=== PATIENT | female | born 1985 | race Caucasian/White ===

== ENCOUNTER 2021-06-14 07:47 | Outpatient (CLI) | payer MEDICARE, MEDICAID, SELFPAY ==
--- NOTE | 2021-06-14 08:29 | XR_ITS ---
WS: [id number] Lateral views of cervical spine in the flexion, extension and neutral positions. 06/14/2021 Clinical Data: CERVICALGIA Comparison: None. Findings: No compression fractures are seen. There is no prevertebral soft tissue swelling. The disc heights ar e normal. On flexion and extension there is no limitation of motion or subluxation. XR/XR cervical spine fl/ex [id number] Impression: Negative lateral views of the cervical spine with no limitation of motion or barnes bluxation on flexion or extension.
== END 2021-06-14 07:48 | disposition home or self-care (01) ==
LOC: RAD 08:05
PROVIDERS: PCP Nurse Practitioner Family; Visit Provider Nurse Practitioner Family
DX: M54.2 Cervicalgia (principal)
CPT/HCPCS: 72040

== ENCOUNTER 2021-08-20 07:13 | Outpatient (CLI) | payer MEDICARE, MEDICAID, SELFPAY ==
--- NOTE | 2021-08-20 07:28 | MR_ITS ---
WS: [id number] MRI LUMBAR SPINE NONCONTRAST TECHNIQUE: Sagittal T1, T2 and STIR imaging. Axial T1 and T2 imaging. CLINICAL INFORMATION: SCIATICA/DORSALGIA COMPARISON: None. FINDINGS: Mild lumbar curve. No acute compression. Prior postoperative changes pedicle screw fixation L3-S1 wit h interconnecting rods. Small shallow central protrusion T12-L1. Spinal canal and foramen are patent. L1-L2: Normal. L2-L3: Mild disc bulging with mild to moderate central canal stenosis. Slight impingement traversing L3 nerve roots bilaterally. Mild facet arthropathy. Foramen are patent. Moderate facet arthropathy. L3-L4: Pedicle screw fixation with laminectomy defects. Spinal canal and foramen are patent. L4-L5: Pedicle screw fixation with laminectomy defects. Spinal canal and foramen are patent. L5-S1: Pedicle screw fixation with laminectomy defects. Spinal canal and foramen are patent. Fixation screws across the sacroiliac joints bilaterally. MR/MR lumbar spine wo con* [id number] IMPRESSION: 1. Mild lumbar curve. No acute compression. No high-grade central canal stenos is. 2. Shallow central protrusion T12-L1 with mild central canal stenosis. 3. Mild to moderate central canal stenosis L2-L3 due to disc bulging with face t arthropathy and ligamentum flavum hypertrophy. Impingement on the traversing L3 nerve roots bilaterally. 4. Pedicle screw fixation L3-L5 with laminectomy defects and interbody fusion grafts. Bilateral sacroiliac fixation screws.
--- NOTE | 2021-08-20 07:30 | XR_ITS ---
WS: [email or web address] XR lumbar spine f/e only [id number] REASON FOR EXAM: POSTLAMINECTOMY SYNDROME FINDINGS: No previous examination for comparison. Posterior pedicle screw and henry fixation of the lumbar spine from L3 to S1. Lateral flexion and extension images demonstrate no abnormal lumbar spine movement. Interbody fusion devices at L3-L4, L4-L5, and L5-S1. Other devices overlying the S1 region without further characterization due to the single plane imagin g. XR/XR lumbar spine f/e only [id number] IMPRESSION: Postoperative lumbar spine as above.
== END 2021-08-20 07:14 | disposition home or self-care (01) ==
LOC: RAD 07:16
PROVIDERS: PCP Nurse Practitioner Family; Visit Provider Nurse Practitioner Family
DX: R32 Unspecified urinary incontinence (principal); M54.30 Sciatica, unspecified side; M54.9 Dorsalgia, unspecified; R20.0 Anesthesia of skin
CPT/HCPCS: 72120; 72148

== ENCOUNTER 2021-12-14 13:22 | Emergency (ER) | payer MEDICARE, MEDICAID, SELFPAY ==
[2021-12-14 13:31] VITALS: BP 139/89; PULSE 85; RESP 16; TEMP 36.3; O2SAT 99
--- NOTE | 2021-12-14 14:06 | ED_ITS ---
HPI - General Adult General: Chief complaint: General Medical Stated complaint: random body jerking Time Seen by Provider: 12/14/21 14:06 History of Present Illness: Ms. Burgess is a 36-year-old lady with complex past medical history presenting to the emergency department for abnormal muscle movements. She reports onset of symptoms subacutely without known specific provoking factor approximately 3 months ago. She is on multiple medications with potential neurologic effects and she was switched from Abilify and another medication to lamotrigine about 1 month ago however has not had significant improvement. She notes daily multiple times per day having abnormal muscle movements in the upper extremities lower extremities and/or face. She denies known specific provoking factor. She has not been awoken due to these and has not been told that she has them during her sleep. Overall course of symptoms has persisted. She contacted her physician and was referred to the emergency department due to concern over serotonergic toxicity. No other specific changes in health, exacerbating, or alleviating factors identified. Onset (ago): month(s) Severity: moderate Relieving factors: none Exacerbating factors: none Associated symptoms: Reports no associated symptoms Review of Systems General: Reports: 10 or more systems reviewed and unremarkable except in HPI and below PFSH ED PFSH: Medical History (Updated 12/28/21 @ 06:31 by Aldo Madison MD) Depression Surgical History (Updated 12/28/21 @ 06:31 by Aldo Madison MD) No significant past surgical history Physical Exam Const: COMMON NORMALS: patient oriented x3 and alert GENERAL APPEARANCE: cooperative and well developed HENMT: COMMON NORMALS: normocephalic and atraumatic HEAD & SCALP: normocephalic and atraumatic Eye: COMMON NORMALS: conjunctivae normal CONJUNCTIVA: Yes conjunctivae normal SCLERA: sclerae normal Neck/C-Spine: COMMON NORMALS: supple GENERAL: Yes trachea midline Resp: COMMON NORMALS: clear to auscultation bilaterally EFFORT & INSPECTION: Yes able to speak in complete sentences AUSCULTATION: clear to auscultation bilaterally Cardio: COMMON NORMALS: regular rate and regular rhythm RATE: regular rate RHYTHM: regular rhythm GI: COMMON NORMALS: Soft to palpation PALPATION: Yes Soft to palpation and No Tenderness to palpation present (GI) PERCUSSION: normal to percussion Extremity: GENERAL: Yes normal exam except as noted and No edema Neuro: COMMON NORMALS: patient oriented x3, CN's II-XII intact bilaterally, moves all extremities, no focal motor deficits, no sensory deficits noted and gait normal SENSORIUM/ORIENTATION: Yes alert and No Orientation impaired Psych: COMMON NORMALS: mental status grossly normal and Normal thought process present THOUGHT PROCESS: Normal thought process present Course ED course: - Patient was seen and evaluated by me at bedside - Patient placed on cardiac monitors, IV access obtained - Initial evaluation notable for exam as above. There is no acute neurologic abnormality observed. No abnormal muscle tone or movements. No rigidity. Medical presentation is not consistent with an NMS or serotonin withdrawal/or toxicity. - Labs personally interpreted by me - Fluids and headache treatment given - Labs notable for no significant hematologic or metabolic abnormality to explain symptoms. Urinalysis does have 10-15 whites though patient does not have urinary tract symptoms and therefore treatment will be deferred at this time. - Imaging notable for no acute abnormality identified on CT scan of the brain - Upon serial reexamination after treatment the patient was improved - Based on patient history, evaluation, and testing as interpreted the most likely cause of the patient's condition is abnormal muscle movements of uncertain etiology that does not require inpatient management at this time. - The results of ED evaluation were discussed with the patient including prescriptions and/or symptomatic cares (if applicable) including appropriate and responsible use, followup plan, and return precautions. The patient verbalized understanding and felt safe for discharge. - Patient discharged in satisfactory condition. Note: Click bubbles or prepopulated christian in note writing are used for assistance with data collection and billing and are inherently more limited than narrative and other text portions of this note. Please use narrative for additional clinical history and defer to narrative/free test for any case of contradictory information. If information appears in only free text or click bubble it should be considered present or absent as reported. Please contact note adjusto writer operator for clarifications of clinical information or contradictory information. MDM is a brief summary, contradictory or erroneous seeming information should be clarified and full note should be reviewed. Vital Signs: Vital signs: Vital Signs Temperature 97.4 F L 12/14/21 13:31 Pulse Rate 82 12/14/21 17:14 Respiratory Rate 14 12/14/21 17:14 Blood Pressure 129/90 12/14/21 17:14 Pulse Oximetry 98 12/14/21 17:14 Oxygen Delivery Ri thod 12/14/21 17:14 MDM - General Adult Medical Decision Making 36-year-old lady presenting with abnormal muscle movements. No emergent condition identified on exam and neurologic exam is nonfocal. Satisfactory for outpatient management. Medical Records I reviewed the patient's medical records. Lab Data I reviewed the patient's lab results. : 12/14/21 15:14 12/14/21 15:[address] 12/14/21 14:36 IMPRESSION: 1. Unremarkable noncontrast CT scan of the brain. Laboratory Results WBC 6.1 10^3/uL (4.0-10.0) 12/14/21 15:14 RBC 4.60 10^6/uL (4.1-5.3) 12/14/21 15:14 Hgb 13.1 g/dL (11.5-15.3) 12/14/21 15:14 Hct 40.0 % (37.0-47.0) 12/14/21 15:14 MCV 87.0 fl (81-99) 12/14/21 15:14 MCH 28.5 pg (28.0-34.0) 12/14/21 15:14 MCHC 32.8 g/dL (30.0-36.0) 12/14/21 15:14 RDW 12.6 % (12.1-15.1) 12/14/21 15:14 Plt Count 329 10^3/cmm (130-400) 12/14/21 15:14 MPV 9.7 fL (7.4-10.4) 12/14/21 15:14 Neut % (Auto) 45.9 % 12/14/21 15:14 Lymph % (Auto) 44.5 % 12/14/21 15:14 [place] % (Auto) 7.4 % 12/14/21 15:14 Eos % (Auto) 1.5 % 12/14/21 15:14 Baso % (Auto) 0.5 % 12/14/21 15:14 Neut # (Auto) 2.79 10^3/uL (1.8-7.7) 12/14/21 15:14 Lymph # (Auto) 2.7 10^3/uL (0.8-4.8) 12/14/21 15:14 [place] # (Auto) 0.5 10^3/uL (0.2-0.9) 12/14/21 15:14 Eos # (Auto) 0.1 10^3/uL (0.0-0.8) 12/14/21 15:14 Baso # (Auto) 0.0 10^3/uL (0.0-0.1) 12/14/21 15:14 Nucleated RBC % (auto) 0 % 12/14/21 15:14 Nucleated RBCs # 0.0 /100WBC 12/14/21 15:14 Sodium 139 mmol/L (136-145) 12/14/21 15:14 Potassium 4.0 mmol/L (3.5-5.1) 12/14/21 15:14 Chloride 102 mmol/L (98-107) 12/14/21 15:14 Carbon Dioxide 27 mmol/L (22-29) 12/14/21 15:14 Anion Gap 14.0 (5-19) 12/14/21 15:14 BUN 20 mg/dL (6-20) 12/14/21 15:14 Creatinine 0.6 mg/dL (0.5-0.9) 12/14/21 15:14 GFR Calculation 112.5 mL/min (90-130) 12/14/21 15:14 Glucose 116 mg/dL (65-115) H 12/14/21 15:14 Calculated Osmolality 292 mOsm/kg (285-295) 12/14/21 15:14 Calcium 9.1 mg/dL (8.5-10.5) 12/14/21 15:14 Total Bilirubin 0.2 mg/dL (0.15-1.2) 12/14/21 15:14 AST 25 U/L (0-32) 12/14/21 15:14 ALT 44 U/L (0-33) H 12/14/21 15:14 Alkaline Phosphatase 67 U/L (35-105) 12/14/21 15:14 Creatine Kinase 141 U/L (26-192) 12/14/21 15:14 Total Protein 7.4 g/dL (6.6-8.7) 12/14/21 15:14 Albumin 4.7 g/dL (3.5-5.2) 12/14/21 15:14 Globulin 2.7 g/dL (1.3-4.6) 12/14/21 15:14 TSH 0.72 uIU/mL (0.27-4.20) 12/14/21 15:14 HCG, Qual Negative (Negative) 12/14/21 15:20 Urine Color Yellow (Yellow) 12/14/21 15:20 Urine Appearance Hazy (CLEAR) A 12/14/21 15:20 Urine pH 5 (5-7) 12/14/21 15:20 Ur Specific [place] 1.025 (1.005-1.030) 12/14/21 15:20 Urine Protein Neg (Negative) 12/14/21 15:20 Urine Glucose (UA) Norm (Normal) 12/14/21 15:20 Urine Ketones Negative (Negative) 12/14/21 15:20 Urine Blood Trace (Negative) H 12/14/21 15:20 Urine Nitrate Negative (Negative) 12/14/21 15:20 Urine Bilirubin Neg (Negative) 12/14/21 15:20 Urine Urobilinogen Norm mg/dL (Negative) 12/14/21 15:20 Ur Leukocyte Esterase Trace (Negative) H 12/14/21 15:20 Urine RBC 0-4 /hpf (0-2) H 12/14/21 15:20 Urine WBC 10-15 /hpf (0-5) H 12/14/21 15:20 Ur Squamous Epith Cells 0-4 /hpf (0-5) H 12/14/21 15:20 Amorphous Sediment Not Reportable 12/14/21 15:20 Urine Bacteria 3+ /hpf (NONE) H 12/14/21 15:20 Discharge Plan Discharge Patient Disposition: Home Clinical Impression: Muscle twitching Condition: Stable Prescriptions: No Action methocarbamol 500 mg tablet 500 mg PO Q8H PRN (Reason: Pain) lamotrigine 25 mg tablet 50 mg PO BEDTIME oxycodone-acetaminophen 10-325 mg tablet 1 tab PO Q8H PRN (Reason: Pain) propranolol 20 mg tablet 20 mg PO BID fluoxetine 20 mg capsule 60 mg PO DAILY pregabalin 300 mg capsule 300 mg PO BID atomoxetine 80 mg capsule 80 mg PO DAILY Linzess 145 mcg capsule 145 mcg PO DAILY multivitamin Tablet 1 tab PO DAILY Zyrtec 10 mg Tablet 10 mg PO DAILY naproxen 250 mg Tablet See Rx Instructions .ROUTE .COMPLEX Rx Instructions: 500 mg orally in the morning / 250 mg orally in the evening Pepcid 20 mg Tablet 20 mg PO BEDTIME Discharge Orders: Discharge ED (Routine); Ordered 12/14/21 Ordered By: Aldo Madison Referrals: Cintia Snow NP [Primary Care Provider] - Discharge Diet: Usual diet Discharge Activity: Increase activity as tolerated Activity Restrictions/Additional Instructions: Thank you for visiting the emergency department. You were seen and evaluated for abnormal muscle movements. The exact cause of your symptoms is unclear though it does not appear to need hospitalization at this time. I will message my case manager specialist for referral to neurology. Please also follow-up with your primary care provider and other physicians. Return to the emergency department for any new neurologic symptoms or anything else that you are concerned about and feel needs emergency department evaluation. Coding Level of Care Code ED Dry Wall Installations Mechanic for Jorge Loja
--- NOTE | 2021-12-14 14:36 | CT_ITS ---
WS: [email or web address] Exam: CT head wo con* [id number] Date/Time of Exam: 12/14/2021 2:44 PM Reason For Exam: abnormal muscle movements DLP: 1105.[address] scans at [facility] use at least one of these dose optimization techniques: automated e xposure control; mA and/or kV adjustment per patient size (includes targeted exams where dose is matc hed to clinical indication); or iterative reconstruction. No sign of acute intracranial bleed or space-occupying mass. The ventricles and basal cisterns are no rmal in size and configuration. No extra-axial fluid collections are seen. The skull is intact. The m astoids and facial sinuses are clear. Unremarkable orbits and optic globes. CT/CT head wo con* [id number] IMPRESSION: 1. Unremarkable noncontrast CT scan of the brain.
[2021-12-14 15:23] LABS: Basophils % 0.5 %; Eosinophils # 0.1 10^3/uL (0.0-0.8); Eosinophils % 1.5 %; Hemoglobin 13.1 g/dL (11.5-15.3); Lymphocytes # 2.7 10^3/uL (0.8-4.8); Lymphocytes % 44.5 %; Mean Corpuscular HGB Conc 32.8 g/dL (30.0-36.0); Mean Corpuscular Hemoglobin 28.5 pg (28.0-34.0); Mean Platelet Volume 9.7 fL (7.4-10.4); Monocytes # 0.5 10^3/uL (0.2-0.9); Monocytes % 7.4 %; Neutrophils # 2.79 10^3/uL (1.8-7.7); Neutrophils % 45.9 %; Nucleated Red Blood Cells % 0 %; Platelet Count 329 10^3/cmm (130-400); Red Cell Distribution Width 12.6 % (12.1-15.1); White Blood Count 6.1 10^3/uL (4.0-10.0)
[2021-12-14] MEDS: lactated ringers 1,000 ML 999 ML IV (15:25)
[2021-12-14 15:30] LABS: HCG Qualitative Urine. Negative (Negative)
[2021-12-14 16:01] LABS: Alanine Aminotransferase 44 U/L (0-33); Albumin Level 4.7 g/dL (3.5-5.2); Alkaline Phosphatase 67 U/L (35-105); Aspartate Amino Transferase 25 U/L (0-32); Blood Urea Nitrogen 20 mg/dL (6-20); Calcium 9.1 mg/dL (8.5-10.5); Carbon Dioxide 27 mmol/L (22-29); Chloride 102 mmol/L (98-107); Creatine Phosphokinase 141 U/L (26-192); Globulin 2.7 g/dL (1.3-4.6); Glomerular Filtration Rate 112.5 mL/min (90-130); Glucose 116 mg/dL (65-115); Osmolality Calculated 292 mOsm/kg (285-295); Sodium 139 mmol/L (136-145); Thyroid Stimulating Hormone 0.72 uIU/mL (0.27-4.20); Total Bilirubin 0.2 mg/dL (0.15-1.2); Total Protein 7.4 g/dL (6.6-8.7)
[2021-12-14 16:10] LABS: Urine Appearance Hazy (CLEAR); Urine Color Yellow (Yellow)
[2021-12-14 16:11] LABS: Add Urine Microscopic? YES; Bilirubin Urine Neg (Negative); Blood Urine Trace (Negative); Glucose Urine UA Norm (Normal); Ketones Urine Negative (Negative); Leukocyte Esterase Urine Trace (Negative); Nitrate Urine Negative (Negative); Protein Urine Neg (Negative); Specific Gravity, Urine 1.025 (1.005-1.030); Urobilinogen Urine Norm (Negative); pH Urine 5 (5-7)
[2021-12-14] MEDS: metoclopramide 5 mg/mL SDV 2 mL 10 MG IVP (16:14)
[2021-12-14] MEDS: diphenhydrAMINE 50 mg/mL SDV 1mL 25 MG IVP (16:14)
[2021-12-14] MEDS: ketorolac 30 mg/mL INJ 15 MG IVP (16:14)
[2021-12-14 16:37] LABS: Add Urine Culture? Yes; Bacteria Urine 3+ /hpf; RBC Urine 0-4 /hpf (0-2); Squamous Epithelial Cell Urine 0-4 /hpf (0-5)
[2021-12-14 17:14] VITALS: BP 129/90; PULSE 82; RESP 14; O2SAT 98
--- NOTE | 2021-12-18 09:08 | DCPLANNER ---
Addendum entered by Starr Hurley 01/10/22 11:16: Patient had a follow up appointment scheduled with neurology - patient did attend appointment. Addendum entered by Starr Hurley 12/25/21 08:06: Patient has a follow up appointment scheduled for Friday, January 09, 2022 at 10:[address] Huffman at neurology. Clinic will call patient with appointment information. Original Note: testing manager had message to schedule a follow up appointment for patient with neurology. testing manager sent patients information to the front office staff at neurology. Patients information will be printed and reviewed. Clinic will call patient with appointment information.
== END 2021-12-14 17:22 | disposition home or self-care (01) ==
PROVIDERS: Emergency Provider Emergency Medicine; PCP Nurse Practitioner Family
DX: R25.3 Fasciculation (principal)
CPT/HCPCS: 36415; 70450; 80053; 81001; 81025; 82550; 84443; 85025; 87077; 87086; 87186; 96361; 96374; 96375; 99285; J1200; J1885; J2765

== ENCOUNTER → 2022-01-09 09:50 | Outpatient (BNVA) | payer MEDICARE, MEDICAID, SELFPAY | PROVIDERS: PCP Nurse Practitioner Family; Referring Provider Emergency Medicine; Visit Provider Specialist | DX: G25.3 Myoclonus (principal); G47.10 Hypersomnia, unspecified; G47.33 Obstructive sleep apnea (adult) (pediatric); Z79.891 Long term (current) use of opiate analgesic | CPT/HCPCS: 99204 ==

== ENCOUNTER 2022-01-17 20:00 | Outpatient (CLI) | payer MEDICARE, MEDICAID, SELFPAY | END 2022-01-17 20:01 | disposition home or self-care (01) | LOC: SLEEP 01-18 06:55 | PROVIDERS: PCP Nurse Practitioner Family; Visit Provider Anesthesiology Pain Medicine | DX: G47.10 Hypersomnia, unspecified (principal); R06.83 Snoring; R53.83 Other fatigue | CPT/HCPCS: 95810 ==

== ENCOUNTER → 2022-01-22 15:17 | Outpatient (BNVA) | payer MEDICARE, MEDICAID, SELFPAY | PROVIDERS: PCP Nurse Practitioner Family; Referring Provider Anesthesiology Pain Medicine; Visit Provider Physician Assistant | DX: M54.16 Radiculopathy, lumbar region (principal); Z98.1 Arthrodesis status | CPT/HCPCS: 72110; 99204 ==

== ENCOUNTER → 2022-02-20 10:05 | Outpatient (BNVA) | payer MEDICARE, MEDICAID, SELFPAY | PROVIDERS: PCP Nurse Practitioner Family; Visit Provider Nurse Practitioner Women's Health | DX: Z01.419 Encounter for gynecological examination (general) (routine) without abnormal findings (principal) | CPT/HCPCS: 87624 ==

== ENCOUNTER 2022-03-21 10:41 | Outpatient (CLI) | payer MEDICARE, MEDICAID, SELFPAY ==
--- NOTE | 2022-03-21 11:00 | IR_ITS ---
WS: [email or web address] MYELOGRAM LUMBAR SPINE Fluoroscopic guided lumbar myelogram CLINICAL INFORMATION: pain COMPARISON: None. TECHNIQUE: The procedure, including risks, benefits, and complications, were discussed with the patie nt who agreed to proceed. A timeout was performed to confirm correct patient, procedure, and site. Using sterile technique, the patient was prepped and draped in the usual sterile fashion. After admin istration of local anesthesia using 1% preservative-free lidocaine and using fluoroscopic guidance, a 22-gauge spinal needle was advanced into the subarachnoid space at the L3-L4 level. Subsequently 13 cc of Omnipaque 240 was administered into the thecal sac. The needle was removed and hemostasis was a chieved. Spot fluoroscopic images were obtained. FLUOROSCOPIC TIME: 1min [id number] # of spot films: 8 Spot fluoroscopic images demonstrate pedicle screw fixation L3-S1. Hardware appears in good position. Slight retrolisthesis L2 on L3. Interbody fusion grafts L3-L4 L4-L5 and L5-S1. IR/IR myelogram sp lumbar [id number] IMPRESSION: 1. Uncomplicated lumbar myelogram. 2. Please see CT myelogram report for additional detail.
--- NOTE | 2022-03-21 11:00 | CT_ITS ---
WS: [email or web address] CT LUMBAR SPINE TECHNIQUE: Contrast-enhanced CT of the lumbar spine with coronal and sagittal reformatted images. CLINICAL INFORMATION: pain COMPARISON: MRI August 20, 2021 DLP: 1400.[address] scans at [facility] use at least one of these dose optimization techniques: automated e xposure control; mA and/or kV adjustment per patient size (includes targeted exams where dose is matc hed to clinical indication); or iterative reconstruction. FINDINGS: Mild lumbar curve. No acute compression. Pedicle screw fixation L3-S1 with interbody fusion grafts L3 -L4 L4-L5 and L5-S1. Subsidence along the adjacent endplates. No significant bony bridging beyond the confines of the grafts. Interconnecting rods appear intact. No evidence of screw loosening. Laminect shanice defects L3-L5. Prior postoperative changes sacroiliac fusion. L1-L2: Moderate facet arthropathy. Spinal canal and foramen are patent. L2-L3: Mild disc bulging with shallow central protrusion. Mild central canal stenosis. Impingement on the RIGHT greater than LEFT subarticular recess. Moderate facet arthropathy ligamentum flavum hypert rophy. Mild RIGHT and no significant LEFT foraminal narrowing. L3-L4: Prior postoperative changes. Spinal canal and foramen are patent. Laminectomy defects. L4-L5: Prior postoperative changes. Laminectomy defects. Spinal canal and foramen are patent. L5-S1: Prior postoperative changes. Endplate osteophytic ridging. Slight effacement of ventral thecal sac. Slight contact of the RIGHT S1 nerve root. Spinal canal and foramen are patent. Laminectomy def ects. Visualized pelvic bony structures: Normal. Paravertebral soft tissues: Normal. CT/CT lumbar spine w con [id number] IMPRESSION: 1. Prior postoperative changes pedicle screw fixation L3-S1 with pedicle screw fixation and interconnecting rods. No evidence of screw loosening. Interconnec ting rods appear intact. Bilateral sacroiliac fixation screws. 2. Interbody fusion grafts L3-L4 L4-L5 and L5-S1 with subsidence along the end plates. No evidence of bony bridging beyond the confines of the grafts. 3. Shallow central disc protrusion at L2-L3 with mild to moderate central misbah l stenosis and impingement on the traversing RIGHT L3 nerve root in the subarti cular recess. Moderate facet arthropathy ligamentum flavum hypertrophy. Mild RI GHT L2-L3 foraminal narrowing. 4. Disc osteophytic ridging L5-S1 slightly contacts the traversing RIGHT S1 ne rve root. 5. Spinal canal and foramen are otherwise patent.
[2022-03-21] MEDS: iohexol 240 mg/mL 50 mL Btl INTRATHECA (12:09)
== END 2022-03-21 10:42 | disposition home or self-care (01) ==
LOC: RAD 10:42
PROVIDERS: PCP Nurse Practitioner Family; Visit Provider Physician Assistant
DX: M48.061 Spinal stenosis, lumbar region without neurogenic claudication (principal); M51.36 Other intervertebral disc degeneration, lumbar region
CPT/HCPCS: 62304; 72132; Q9966

== ENCOUNTER 2022-03-25 08:34 | Outpatient (CLI) | payer MEDICARE, MEDICAID, SELFPAY ==
--- NOTE | 2022-03-25 | FL_ITS ---
WS: [email or web address] Esophagram, air-contrast, 03/25/2022 Clinical Data: Dysphagia, choking Comparison: None. Fluoroscopy time: 1.3 minutes # of spot films: 10 Findings: The patient swallowed the barium and air mixture. The hypopharynx was entirely normal. There is no po oling, penetration or aspiration. There is no cricopharyngeal achalasia or Zenker's diverticulum. The esophagus demonstrated normal contractions. There was no polyp, mass, obstruction, erosion, ulcer or hiatal hernia. No reflux was seen. FL/FL barium swallow 2cont [id number] Impression: Negative barium swallow and esophagram.
--- NOTE | 2022-03-25 08:40 | FL_ITS ---
WS: [email or web address] Esophagram, air-contrast, 03/25/2022 Clinical Data: Dysphagia, choking Comparison: None. Fluoroscopy time: 1.3 minutes # of spot films: 10 Findings: The patient swallowed the barium and air mixture. The hypopharynx was entirely normal. There is no po oling, penetration or aspiration. There is no cricopharyngeal achalasia or Zenker's diverticulum. The esophagus demonstrated normal contractions. There was no polyp, mass, obstruction, erosion, ulcer or hiatal hernia. No reflux was seen.
== END 2022-03-25 08:35 | disposition home or self-care (01) ==
LOC: RAD 08:34
PROVIDERS: PCP Nurse Practitioner Family; Visit Provider Nurse Practitioner Family
DX: R47.02 Dysphasia (principal); T17.308A Unspecified foreign body in larynx causing other injury, initial encounter
CPT/HCPCS: 74221

== ENCOUNTER → 2022-03-28 14:41 | Outpatient (BNVA) | payer MEDICARE, MEDICAID, SELFPAY | PROVIDERS: PCP Nurse Practitioner Family; Visit Provider Orthopaedic Surgery | DX: M48.062 Spinal stenosis, lumbar region with neurogenic claudication (principal); Z98.1 Arthrodesis status | CPT/HCPCS: 99214 ==

== ENCOUNTER → 2022-04-30 10:54 | Outpatient (BNVA) | payer MEDICARE, MEDICAID, SELFPAY | PROVIDERS: PCP Nurse Practitioner Family; Visit Provider Specialist | DX: G43.009 Migraine without aura, not intractable, without status migrainosus (principal); G25.3 Myoclonus; G47.10 Hypersomnia, unspecified; M54.2 Cervicalgia; Z79.891 Long term (current) use of opiate analgesic; Z79.899 Other long term (current) drug therapy | CPT/HCPCS: 99214 ==

== ENCOUNTER → 2022-05-21 12:20 | Outpatient (BNVA) | payer MEDICARE, MEDICAID, SELFPAY | PROVIDERS: PCP Nurse Practitioner Family; Visit Provider Specialist | DX: M48.062 Spinal stenosis, lumbar region with neurogenic claudication (principal); G43.009 Migraine without aura, not intractable, without status migrainosus; M79.7 Fibromyalgia; Z01.818 Encounter for other preprocedural examination; Z86.73 Personal history of transient ischemic attack (TIA), and cerebral infarction without residual deficits; Z87.891 Personal history of nicotine dependence; G45.9 Transient cerebral ischemic attack, unspecified | CPT/HCPCS: 36415; 70450; 70496; 70498; 80053; 84443; 85025; 99215; Q9967 ==

== ENCOUNTER 2022-05-21 14:43 | Outpatient (CLI) | payer MEDICARE, MEDICAID, SELFPAY ==
[2022-05-21] MEDS: iohexol 350 mg/mL 500 mL Btl (per mL) IV ×2 (14:47→15:55)
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
--- NOTE | 2022-05-21 17:30 | CTR_ITS ---
PROCEDURE INFORMATION: Exam: CT Head Without Contrast Exam date and time: 05/21/2022 3:46 PM Age: 36 years old Clinical indication: Other: Transient cerebral ischemic attack, unspecified; Additional info: G45.9 - transient cerebral ischemic attack, unspecified TECHNIQUE: Imaging protocol: Computed tomography of the head without contrast. Radiation optimization: All CT scans at this facility use at least one of these dose optimization techniques: automated exposure control; mA and/or kV adjustment per patient size (includes targeted exams where dose is matched to clinical indication); or iterative reconstruction. Other protocol: This patient has received 3 known CTs and 0 known cardiac nuclear medicine studies in the 12 months prior to the current study. COMPARISON: CT head wo con* [id number] 12/14/2021 2:54 PM RADIATION DOSE METRICS: Total DLP (mGy-cm): 543 FINDINGS: Brain: Normal. No hemorrhage. Unremarkable white matter. No mass effect. Cerebral ventricles: No ventriculomegaly. Paranasal sinuses: Visualized sinuses are unremarkable. No fluid levels. Mastoid air cells: Visualized mastoid air cells are well aerated. Bones/joints: Unremarkable. No acute fracture. Soft tissues: Unremarkable. CT/CT head wo con* [id number] IMPRESSION: No acute intracranial abnormality.
== END 2022-05-21 14:44 | disposition home or self-care (01) ==
PROVIDERS: PCP Nurse Practitioner Family; Visit Provider Specialist
DX: G45.9 Transient cerebral ischemic attack, unspecified (principal)
CPT/HCPCS: 36415; 70450; 70496; 70498; 80053; 84443; 85025; Q9967

== ENCOUNTER 2022-05-22 16:06 | Inpatient (IN) | payer MEDICARE, MEDICAID, SELFPAY ==
[2022-05-21 09:58] VITALS: BMI 33.5
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
[2022-05-22] VITALS (18 sets, daily range): BP systolic 99–142; BP diastolic 65–98; PULSE 83–101; RESP 7–21; TEMP 36.4–36.6; O2SAT 90–100
[2022-05-22] MEDS: sodium chloride 0.9% 1,000 ML 30 ML IV (11:20)
[2022-05-22 11:26] LABS: OR HCG Qualitative Urine Negative (Negative)
--- NOTE | 2022-05-22 11:48 | PM.HP ---
Providers/Chief Complaint Primary Care Provider: Cintia Snow NP Chief Complaint: [id number],M48.0 History of Present Illness Karime Burgess is a 36 year old female ?She complains of low back pain that travels from her low back into the right posterior hip. She also complains of bilateral leg weakness and her legs giving out. She did have a spinal cord stimulator trial that helped with her back pain. She has a history of previous lumbar fusion in 2018 done in [place]. Review of Systems Const: Reports: fatigue Eyes: Reports: blurry vision Card: Reports: other (calf cramp) GI: Reports: heartburn and constipation Musc: Reports: neck pain, back pain, extremity pain and muscle weakness Skin/Breast: Reports: rash Neuro: Reports: headache(s), numbness in extremities, weakness in extremities, sensory changes, difficulty walking and involuntary movements Psych: Reports: depression, irritability and difficulty concentrating Medications/Allergies Home Medications Medication Instructions Recorded Confirmed Last Taken Type cetirizine 10 mg tablet (Zyrtec) 10 mg PO DAILY 12/14/21 05/21/22 05/22/22 08:00 History famotidine 20 mg tablet (Pepcid) 20 mg PO BEDTIME 12/14/21 05/21/22 05/22/22 08:00 History linaclotide 145 mcg capsule 145 mcg PO DAILY 12/14/21 05/21/22 05/21/22 08:00 History (Linzess) multivitamin 1 tab PO DAILY 12/14/21 05/21/22 05/21/22 08:00 History naproxen 250 mg tablet See Rx Instructions .Route .COMPLEX 12/14/21 05/21/22 05/16/22 History oxycodone-acetaminophen 10 mg-325 1 tab PO Q8H PRN Pain 12/14/21 05/21/22 05/22/22 08:00 History mg tablet pregabalin 300 mg capsule 300 mg PO BID 12/14/21 05/21/22 05/22/22 08:00 History propranolol 20 mg tablet 20 mg PO BID 12/14/21 05/21/22 05/22/22 08:00 History tizanidine 4 mg capsule 4 mg PO Q6H PRN Headache 02/20/22 05/21/22 05/21/22 History sumatriptan succinate 100 mg See Rx Instructions PO .COMPLEX 04/30/22 05/22/22 Unknown Rx tablet (Imitrex) #90 tabs topiramate 100 mg tablet 100 mg PO DAILY 90 days #90 tabs 04/30/22 05/21/22 05/21/22 08:00 Rx Intraoperative Neuromonitoring #1 ea 05/21/22 Unknown Rx Allergies Allergy/AdvReac Type Severity Reaction Status Date / Time codeine Allergy Unknown Verified 05/21/22 12:33 hydrocodone Allergy Unknown Verified 05/21/22 12:33 Sulfa (Sulfonamide Allergy Unknown Verified 05/21/22 12:33 Antibiotics) PFSH Acute PFSH: Medical History Bipolar 1 disorder Depression DVT (deep venous thrombosis) (~2001) L leg-- OCP related Fibromyalgia syndrome Genital herpes Heartburn Irritable bowel syndrome (IBS) CONSTIPATION Migraine without aura No pertinent past medical history neghx: htn,dm,thyroid,pe PCP: Cintia Doshi [facility] H/O LEEP (~2019) History of back surgery (~2017) History of hip surgery (~2019) Right-- femur head repair Hx of appendectomy (~1989) Hx of cholecystectomy (~2019) Hx of shoulder surgery (~2020) Right shoulder S/P fusion of sacroiliac joint (~2018) Bilateral Family History Other Adopted Social History Smoking and tobacco status: former smoker Vitals/I&O/Wt Last Vital Signs Temp 97.8 F 05/22/22 10:53 Pulse 85 05/22/22 10:53 Resp 16 05/22/22 10:53 BP 129/95 05/22/22 10:53 Pulse Ox 98 05/22/22 10:53 O2 Del Method 05/22/22 10:56 Weight last 48 hrs Weight 247 lb Physical Exam Narrative: CONSTITUTIONAL: This is a normal appearing 36 year old female? in no acute distress. PSYCH: The patient is oriented to person, place and time. SKIN: The skin is of normal color and texture. NEURO: Patient is neurovascularly intact. MUSCULOSKELETAL / EXTREMITIES: 1.? lnjury(s): lumbar radiulopathy A&P Assessment and plan (1) Lumbar stenosis with neurogenic claudication: T10-L3 PSF Attestations Medical Necessity Statement*: failed conservative tx Coding Level of Care Code Acute Code for [facility] Fwd Diagnoses Lumbar stenosis with neurogenic claudication M48.062
--- NOTE | 2022-05-22 11:52 | P.ANESUD_ITS ---
Pre-Anesthetic Update Pre-Anesthetic Assessment: Date of Surgery/Procedure: 05/22/22 Preop Deepti gnosis: Lumbar stenosis w/Neurogenic Claudication, Failed Hardware L spine Proposed Procedure: Operation Date: 05/22/22 13:55 Proposed Procedures p Spinal Fusion Posterior Spinal Fusion: [id number] with Decomp at L3- T10 26219, L1,37561,[id number],46957,75187,90924,42296 M48.062(Not Applicable) - Oli Pineda, DO s Lumbar Spine Decompression(Not Applicable) - Oli Pineda, DO Any changes to Pre-Anesthetic Assessment?: No Last Intake: Intake Last Liquid Date 05/21/22 Last Liquid Time 23:45 Last Solid Date 05/21/22 Last Solid Time 23:40 Vitals: Temperature 97.8 F 05/22/22 10:53 Temperature Source Temporal Artery S can 05/22/22 10:53 Pulse Rate 85 05/22/22 10:53 Pulse Rhythm 05/22/22 10:56 Pulse Strength 3+ Normal 05/22/22 10:56 Respiratory Rate 16 05/22/22 10:53 Blood Pressure 129/95 05/22/22 10:53 Blood Pressure Yue n 106 05/22/22 10:53 Pulse Oximetry 98 05/22/22 10:53 Oxygen Delivery Me thod 05/22/22 10:56 Exam: Pre-Anes Outpt Exam: alert, oriented x 3, clear to auscultation bilaterally and regular rate & rhythm Cardiac Studies: No Data to Display
[2022-05-22] MEDS: ceFAZolin 2,000 MG in sodium chloride 0.9% (plus) 50 ML 100 MG IV ×2 (11:56→20:31)
[2022-05-22] MEDS: vancomycin 1,000 MG SDV 1000 MG XX (12:39)
[2022-05-22] MEDS: lidocaine-epi 2% 20 mL INJ INJECTION (12:39)
[2022-05-22] MEDS: heparin, porcine 1,000 unit/mL INJ 10 mL 10000 UNIT IRRIGATION (12:40)
--- NOTE | 2022-05-22 13:32 | PC.NURSE ---
[id number] Attempted to call patient's mother to give her an update. BHARGAV
--- NOTE | 2022-05-22 15:08 | XR_ITS ---
WS: [id number] XR lumbar spine 1V port [id number] REASON FOR EXAM: OR PICS FINDINGS: Extension of previous S1-L3 posterior decompression with pedicle screw and henry placement. Posterior decompression with posterior pedicle screws and interconnecting rods to the T10 level. Surgical appliances are in proper position and alignment. XR/XR lumbar spine 1V port [id number] IMPRESSION: Extension of posterior decompression with pedicle screw and henry placement to th e T10 level from the L3 level without abnormality.
--- NOTE | 2022-05-22 15:30 | PM.OP ---
Operative Report Date of procedure: May 22, 2022 Pre-op diagnosis: Preop Diagnosis Lumbar stenosis w/Neurogenic Claudication, Failed Hardware L spine Post-op diagnosis: same Procedure done: 1. T10 to L4 posterior spine fusion 2. T10 to L4 instrumentation 3. L1/2 laminectomy with partial facetectomy 4. L2/3 Laminectomy with partial facetectomy 5. use of computer navigation/stereotactic for spine 6. bone marrow aspirate right iliac crest 7. use of autograft from same incision 8. use of allograft Surgeon: Oli Pineda Conflict Resolution Professional: Garfield Escamilla Conflict Resolution Professional: The operating room surgical technician, Garfield Escamilla, PAC was needed for his expertise under the microscope. He was important and necessary throughout the procedure to complete in a safe and timely manner. He assisted with patient positioning prepping and draping tissue retraction suctioning of the operative field protection of the dural sac and tissue closure Estimated blood loss (mL): 350 Procedure: 1. T10 to L4 posterior spine fusion 2. T10 to L4 instrumentation 3. L1/2 laminectomy with partial facetectomy 4. L2/3 Laminectomy with partial facetectomy 5. use of computer navigation/stereotactic for spine 6. bone marrow aspirate right iliac crest 7. use of autograft from same incision 8. use of allograft Patient brought the operative suite after undergoing anesthesia placed in the prone position. All areas impingement well-padded. Patient was prepped draped normal sterile fashion. Neuro monitoring was used throughout the entire case. Skin incision made over the T10-L4 levels. The skin was made down to the thoracolumbar fascia. Retractors were placed subperiosteal dissection was made out from the transverse processes of T10 down to the transverse processes of L2. Patient had previous hardware in the screws and rods were dissected down to L5. Rods identified as well as the transverse processes of L3 and L4. Next attention was brought to obtaining bone marrow aspirate from right iliac crest. This was done by making stab incision the skin and placing the awl into the iliac crest bone marrow was aspirated 1 mm increments using the [employer] bone marrow aspirate system. She was brought to placing the fiducial for computer navigation. 2 pins were placed in the right iliac crest. These pains later be removed at the end of the case. The fiducial was then attached to these pins and the C-arm was brought in and spun around the patient. Once the images were completed there alone in the computer system in order to facilitate using the system for placement of. Navigated screws. Next tension was brought to placing the pedicle screws. These were done from L2 up to T10 bilaterally. Technique for placing the screws was to use the high-speed bur followed by the computer navigated gearshift followed by the pedicle feeler followed placement of the screw under computer navigated guidance. Once all the screws were placed from T10 down to L2. Attention was then brought to performing the laminectomies. Laminectomies were performed at the L2-3 level. This was done using a high-speed bur, curettes and Kerrison rongeurs. The lamina was removed and then the medial aspect of the facet joints were taken down with the high-speed bur and curved curette. In the capsule Purdy. The L3 nerve was traced around on the L3 pedicle there was some scar tissue from previous surgeries and then the L2 nerves were traced out the L2-3 foramen. Attention was brought to the L1-2 level. The has been gross used to take down the lamina and the medial aspect of facet joints. The curved. Kerrisons were used to take out the remaining lamina and medial aspect of facet joints. The ligamentum flavum was taken down from L1-L2. The L1 nerve was traced at the L1-2 foramen and the L2 nerve transfer on the L2 pedicles. Next attention was brought to placing the rods. José connectors were placed on the previous rods that were present. They are placed on the L4-5 level and the L3-4 level. These were locked and torqued in position bilaterally. Rods were then passed from the L4-5 clamp to the L3-4 clamp and to the pedicle screw of L2 up to T10. This was done bilaterally. Caps were placed and locked in position. Was brought to decorticating the bone. The was used to decorticate the bone from the TVs and lamina of T10 down to L1. In the TPs of L1-L2-L3 and L4 were decorticated. And then the bone marrow aspirate mixed with osteo amp in the autograft chips were all packed into the lateral gutters from L4 up to T10. Vancomycin powder was then placed deep drain was placed and wound was closed in a layered fashion using 0 Vicryl 2-0 Vicryl and Monocryl suture. Sterile dressings applied patient transferred to PACU in stable addition.
[2022-05-22] MEDS: fentaNYL 50 mcg/mL INJ 2mL IVP (15:56)
--- NOTE | 2022-05-22 16:00 | ANE.PACU2 ---
Inpatient post-anesthesia follow up: Airway intact: Yes Vital signs: Temperature 98.5 F Pulse Rate 107 Respiratory Rate 21 Blood Pressure 100/67 Pulse Oximetry 96 Oxygen Delivery Me thod Room Air Oxygen Flow Rate 8 Fraction of Inspir ed Oxygen Hydration adequate: Yes Nausea and vomiting: No Pain level: 1 Mental status: Baseline
--- NOTE | 2022-05-22 16:24 | PC.NURSE ---
Urine cloudy. Reported to receiving nurse. Hemovac emptied with 100cc output
[2022-05-22] MEDS: lactated ringers 1,000 ML 90 ML IV (17:45)
[2022-05-22] MEDS: docusate sodium 100 mg Capsule PO (17:46)
[2022-05-22] MEDS: oxyCODONE-APAP 10-325 mg Tablet PO (17:46)
[2022-05-22] MEDS: pregabalin 150 mg Capsule 300 MG PO (17:47)
[2022-05-22] MEDS: propranolol 20 mg Tablet PO (17:47)
[2022-05-22] MEDS: famotidine 20 mg Tablet PO (20:31)
[2022-05-22] MEDS: ketorolac 30 mg/mL INJ IVP (22:23)
[2022-05-23] VITALS: BP 100/67; PULSE 107; RESP 21; TEMP 36.9; O2SAT 96
[2022-05-23] MEDS: ceFAZolin 2,000 MG in sodium chloride 0.9% (plus) 50 ML 100 MG IV ×2 (03:33→12:45)
[2022-05-23 05:00] VITALS: BP 111/71; PULSE 98; RESP 21; TEMP 36.4; O2SAT 98
[2022-05-23 06:00] VITALS: BP 130/76; PULSE 94; RESP 17; TEMP 36.6; O2SAT 97
[2022-05-23] MEDS: lactated ringers 1,000 ML 90 ML IV (06:13)
--- NOTE | 2022-05-23 07:33 | PM.PN ---
Subjective Subjective: POD 1 She reporting back pain. Resting comfortably. Family is present. Denies any chest pain, shortness of breath or headaches. Vitals/I&O/Wt Last Vital Signs Temp 97.6 F 05/23/22 05:00 Pulse 98 05/23/22 05:00 Resp 21 H 05/23/22 05:00 BP 111/71 05/23/22 05:00 Pulse Ox 98 05/23/22 05:00 O2 Del Method 05/22/22 16:47 O2 Flow Rate 8 05/22/22 15:35 05/22/22 05/23/22 05/23/22 22:59 06:59 14:59 Intake Total 2690 / 2740 1320 / 4060 Output Total 900 / 900 1120 / 2020 Balance 1790 / 1840 200 / 2040 Weight last 48 hrs Weight 272 lb 8 oz Weight 247 lb Physical Exam Narrative: Patient presents alert and oriented x3 with a good general appearance normal mood and affect. Normal coordination normal stability. Mild tenderness around the incisional site with the incision appear to be clean and dry with Hemovac intact. No signs of erythema or drainage. No signs of infection. Patient denies any fevers or chills. 5/5 motor strength both lower extremities with negative straight leg raise bilaterally. Calves are supple no medial thigh tenderness. Pulses are 2+ at the dorsalis pedis and posterior tibial region. Good capillary refill throughout normal sensation light touch both lower extremities. Urinary Catheter Management: [place]: Cath Placed During This Visit: yes Reason for Continuing Indwelling Catheter: Required Immobilization for Trauma or Surgery or Anesthesia Urinary Catheter Date of Insertion: 05/22/22 Urinary Catheter Time of Insertion: 12:37 A&P Assessment and plan (1) S/P spinal fusion: Physical therapy to mobilize. We will discontinue Hemovac drain. Encourage incentive spirometer for pulmonary toilet. Discharge home later today if stable. Return the office in 1 week's time for a wound check. Call if there is problems. Attestations Medical Necessity Statement*: DC home later this AM if stable Coding Level of Care Code Acute Code for [facility] Fwd Diagnoses S/P spinal fusion Z98.1
[2022-05-23 09:34] VITALS: RESP 16
[2022-05-23] MEDS: propranolol 20 mg Tablet PO (09:34)
[2022-05-23] MEDS: oxyCODONE-APAP 10-325 mg Tablet PO ×2 (09:34→14:09)
[2022-05-23] MEDS: pregabalin 150 mg Capsule 300 MG PO (09:34)
[2022-05-23] MEDS: cetirizine 10 mg Tablet PO (09:34)
[2022-05-23] MEDS: docusate sodium 100 mg Capsule PO (09:35)
[2022-05-23] MEDS: topiramate 100 mg Tablet PO (09:35)
[2022-05-23] MEDS: multivitamin therapeutic Tablet 1 TAB PO (09:35)
[2022-05-23 12:00] VITALS: BP 138/87; PULSE 94; O2SAT 93
--- NOTE | 2022-05-23 12:10 | PC.CHAP ---
Pastoral Care Encounter/Spiritual Assessment Type of Contact [] Declined process development chemist visit [] Patient/Family/Request visit [] Outpatient visit [] Follow-up visit [] Physician referral [] Code/Alert [x] Routine visit [] Staff referral [] Actively dying [] Patient sleeping [] Family support [] [] Out of room [] Palliative care [] [x] Receiving care in room [] Pre-surgical visit [] Trauma [] Long length of stay [] ICU visit [] Other: Relational/Emotional Strength [x] Patient feels connected with others/family/visitors/staff [] Distress [] Loneliness/isolation [] Abandonment Spirituality of Patient [x] Person of [place] [] Attends Episcopal of their [place] [x] Believes in Prayer [] Reads Bible or Druze materials [] There are Spiritual issues to be addressed Change Control Manager Interventions [x] Prayer [x] Active listening [x] Non-anxious presence [x] Spiritual/emotional support [] Crisis/trauma care [x] Spiritual counseling [] Bereavement support [] Provided bereavement packet [] Provided Bible/devotional materials [] Provided toy/stuffed animal, coloring book to patient or family member [] Provided Communion [] Anointing/[place] [] Salvation [x] Completed spiritual assessment [] Other: Impact on Illness or Injury [] Angry [] Fearful [] Anxious [] Often cries [] Exhaustion [] Unable to work [] Unable to attend taoist [] Unable to walk/stand [] Unable to read [] Unable to drive [] Unable to eat/drink [] Unable to sleep [] Unable to be with family [] Patient intubated [] Other: Summary recovery from surgery leg swelling has a good attitude well go home Time spent with patient 10 mins
[2022-05-23 14:09] VITALS: RESP 18
== END 2022-05-23 14:45 | disposition home or self-care (01) | DRG 458 ==
LOC: MEDSURG 16:06
PROVIDERS: Anesthesiology; Admitting Provider Orthopaedic Surgery; PCP Nurse Practitioner Family; Visit Provider Orthopaedic Surgery
PROC: 0RG707J Fusion of 2 to 7 Thoracic Vertebral Joints with Autologous Tissue Substitute, Posterior Approach, Anterior Column, Open Approach (ICD-10-PCS; principal; 2022-05-22 13:25)
PROC: 0RG707J Fusion of 2 to 7 Thoracic Vertebral Joints with Autologous Tissue Substitute, Posterior Approach, Anterior Column, Open Approach (ICD-10-PCS; CPT 63005; 2022-05-22 13:25)
DX: M48.062 Spinal stenosis, lumbar region with neurogenic claudication (principal); Z88.5 Allergy status to narcotic agent; Z88.2 Allergy status to sulfonamides; F31.9 Bipolar disorder, unspecified; Z86.718 Personal history of other venous thrombosis and embolism; M79.7 Fibromyalgia; Z98.1 Arthrodesis status; Z87.891 Personal history of nicotine dependence
CPT/HCPCS: 51702; 72020; 76000; 81025; 84703; 97116; 97161; 97530; C1713; J0690; J1100; J1170; J1644; J1885; J2405; J2704; J3010; J3370; J3490; J7030; J7120; P9045

== ENCOUNTER 2022-05-26 16:49 | Emergency (ER) | payer MEDICARE, MEDICAID, SELFPAY ==
[2022-05-26 17:51] VITALS: BP 115/68; PULSE 106; TEMP 36.8; O2SAT 100; BMI 33.7
--- NOTE | 2022-05-26 18:38 | CTR_ITS ---
PROCEDURE INFORMATION: Exam: CT Lumbar Spine With Contrast Exam date and time: 05/26/2022 7:21 PM Age: 36 years old Clinical indication: Low back pain; Prior surgery; Surgery date: 3-7 days post-operative; Surgery type: Rods and screws t10-l5 with fusion; Additional info: Back pain post op TECHNIQUE: Imaging protocol: Computed tomography of the lumbar spine with contrast. Radiation optimization: All CT scans at this facility use at least one of these dose optimization techniques: automated exposure control; mA and/or kV adjustment per patient size (includes targeted exams where dose is matched to clinical indication); or iterative reconstruction. Contrast material: OMNI 350; Contrast volume: 100 ml; Contrast route: INTRAVENOUS (IV); Other protocol: This patient has received 4 known CTs and 0 known cardiac nuclear medicine studies in the 12 months prior to the current study. COMPARISON: CT lumbar spine w con [id number] 03/21/2022 11:53 AM RADIATION DOSE METRICS: Total DLP (mGy-cm): 1902 FINDINGS: Bones/joints: Spinal fusion changes have been expanded superiorly to the T10 level. Laminectomy changes have also been performed at the L1-L2 level with stable pre-existing laminectomies L3-L5. Pre-existing bilateral SI joint fusion changes are stable. The alignment of the spine is near anatomic. No acute displaced fracture is seen. No high-grade compromise of the spinal canal. Soft tissues: Minimal subcutaneous soft tissue gas with subcutaneous soft tissue edema is seen posteriorly in the surgical bed consistent with history. Probable seroma in the L1-L2 level laminectomy bed. No definite drainable abscess or fluid collection is seen. CT/CT lumbar spine w con [id number] IMPRESSION: Extension of the spinal fusion changes superiorly to the T10 level with intact hardware and anatomic alignment. Laminectomy changes have also been performed at L1-L2 with probable seroma in the laminectomy bed. No acute osseous injury. No drainable abscess or fluid collection.
--- NOTE | 2022-05-26 18:54 | ED_ITS ---
HPI - Back Pain/Injury General: Chief Complaint: Back Pain/Injury Stated Complaint: post back surgery pain Time Seen by Provider: 05/26/22 18:11 History of Present Illness: 36-year-old female who had a lumbar fusion surgery on 05/22. She presents with increased pain. She could not get her abdominal binder on at home, and she was concerned because she is supposed to wear it. She thinks she may be swollen, because its not fitting properly MD elicited complaint: back pain Pertinent past history: other Onset (ago): hour(s) Timing: constant Severity: moderate Quality: other Location: lumbar spine Radiation: none Exacerbating factors: movement Relieving factors: medication Associated symptoms: Reports myalgias and nausea; Deny abdominal pain, change in bowel habits, fecal incontinence, fever(s), urinary frequency or vomiting Treatments prior to arrival: prescription analgesics Review of Systems Const: Denies: fever(s) Card: Denies: chest pain Resp: Denies: dyspnea GI: Reports: nausea; Denies: abdominal pain, vomiting, fecal incontinence or change in bowel habits PFS ED PFSH: Medical History Bipolar 1 disorder Depression DVT (deep venous thrombosis) (~2001) L leg-- OCP related Fibromyalgia syndrome Genital herpes Heartburn Irritable bowel syndrome (IBS) CONSTIPATION Migraine without aura No pertinent past medical history neghx: htn,dm,thyroid,pe PCP: Cintia Doshi [place] Surgical History H/O LEEP (~2019) History of back surgery (~2017) History of hip surgery (~2019) Right-- femur head repair Hx of appendectomy (~1989) Hx of cholecystectomy (~2019) Hx of shoulder surgery (~2020) Right shoulder S/P fusion of sacroiliac joint (~2018) Bilateral Family History Other Adopted Social History Smoking and tobacco status: former smoker Physical Exam Const: COMMON NORMALS: no acute distress GENERAL APPEARANCE: cooperative and in distress (And pain); not ill appearing NUTRITIONAL APPEARANCE: obese HENMT: COMMON NORMALS: normocephalic, atraumatic and Normal external nose present HEAD & SCALP: normocephalic and atraumatic FACE & SINUS: normal facial exam and face symmetric NOSE: Normal external nose present Eye: COMMON NORMALS: Equal, round and reactive pupils present and EOMs intact bilaterally PUPIL: Yes Equal, round and reactive pupils present Neck/C-Spine: GENERAL: Yes trachea midline Chest: CHEST: Yes Symmetrical chest wall rise Resp: COMMON NORMALS: normal respiratory effort, No retractions, No use of acc essory muscles and clear to auscultation bilaterally AUSCULTATION: clear to auscultation bilaterally Cardio: COMMON NORMALS: regular rate and regular rhythm RATE: regular rate RHYTHM: regular rhythm GI: COMMON NORMALS: Normal to inspection, nondistended, normoactive bowel sounds present Back/Pelvis: OTHER: Examination lumbar spine reveals a very clean looking incision, covered with waterproof bandage. Drain incision site is clean as well. No erythema, warmth, or overt tenderness. There are some mild tenderness on the right side of the spine in the thoracolumbar paraspinal musculature. No spasm. Extremity: COMMON NORMALS: no pedal edema Neuro: BENJY COMA SCALE: document GCS findings [place] coma scale eye openin g: Spontaneous Benjy coma scale verbal response: Orientated Benjy coma scale motor response: Obey commands Benjy coma scale total score: 15 SENSORY EXAM: Yes extremities (intact) Psych: COMMON NORMALS: speech normal SPEECH: Yes normal speech Skin: COMMON NORMALS: no rashes or lesions noted GENERAL SKIN EXAM: no rashes or lesions noted Course Vital Signs: Vital signs: Vital Signs Temperature 98.2 F 05/26/22 17:51 Pulse Rate 109 H 05/26/22 20:35 Respiratory Rate 20 H 05/26/22 20:35 Blood Pressure 112/67 05/26/22 20:35 Pulse Oximetry 96 05/26/22 20:35 Oxygen Delivery Me thod 05/26/22 20:35 MDM - Back Pain/Injury Medical Decision Making CT appears stable. White blood cell count is 8. Clinically she looks good. No radicular pain or neurological symptoms. Abdominal binder was replaced with a more robust lumbar support with abdominal binding. She feels better in this, and it is easier to get on and off. She will follow-up with her surgeon. Labs 05/26/22 19:00 05/26/22 19:00 Rad[address] Impressions Lum[address] Spine CT 05/26/22 18:38 IMPRESSION: Extension of the spinal fusion changes superiorly to the T10 level with intact hardware and anatomic alignment. Laminectomy changes have also been performed at L1-L2 with probable seroma in the laminectomy bed. No acute osseous injury. No drainable abscess or fluid collection. Laboratory Results WBC 8.1 10^3/uL (4.0-10.0) 05/26/22 19:00 RBC 3.84 10^6/uL (4.1-5.3) L 05/26/22 19:00 Hgb 11.0 g/dL (11.5-15.3) L 05/26/22 19:00 Hct 34.5 % (37.0-47.0) L 05/26/22 19:00 MCV 89.8 fl (81-99) 05/26/22 19: MCH 28.6 pg (28.0-34.0) 05/26/22 19: MCHC 31.9 g/dL (30.0-36.0) 05/26/22 19: RDW 13.5 % (12.1-15.1) 05/26/22 19:00 Plt Count 344 10^3/cmm (130-400) 05/26/22 19:00 MPV 10.5 fL (7.4-10.4) H 05/26/22 19:00 Neut % (Auto) 49.3 % 05/26/22 19: Lymph % (Auto) 36.3 % 05/26/22 19: Sunflower % (Auto) 9.7 % 05/26/22 19:00 Eos % (Auto) 3.3 % 05/26/22 19:00 Baso % (Auto) 0.4 % 05/26/22 19:00 Neut # (Auto) 4.01 10^3/uL (1.8-7.7) 05/26/22 19:00 Lymph # (Auto) 3.0 10^3/uL (0.8-4.8) 05/26/22 19:00 Sunflower # (Auto) 0.8 10^3/uL (0.2-0.9) 05/26/22 19:00 Eos # (Auto) 0.3 10^3/uL (0.0-0.8) 05/26/22 19:00 Baso # (Auto) 0.0 10^3/uL (0.0-0.1) 05/26/22 19:00 Nucleated RBC % (auto) 0 % 05/26/22 19:00 Nucleated RBCs # 0.0 /100WBC 05/26/22 19:00 ESR 29 mm/hr (0-15) H 05/26/22 19:00 Sodium 139 mmol/L (136-145) 05/26/22 19:00 Potassium 3.6 mmol/L (3.5-5.1) 05/26/22 19:00 Chloride 104 mmol/L (98-107) 05/26/22 19:00 Carbon Dioxide 21 mmol/L (22-29) L 05/26/22 19:00 Anion Gap 17.6 (5-19) 05/26/22 19:00 BUN 11 mg/dL (6-20) 05/26/22 19:00 Creatinine 0.7 mg/dL (0.5-0.9) 05/26/22 19:00 GFR Calculation 94.2 mL/min (90-130) 05/26/22 19:00 Glucose 104 mg/dL (65-115) 05/26/22 19:00 Calculated Osmolality 288 mOsm/kg (285-295) 05/26/22 19:00 Calcium 9.2 mg/dL (8.5-10.5) 05/26/22 19:00 Total Bilirubin 0.3 mg/dL (0.15-1.2) 05/26/22 19:00 AST 31 U/L (0-32) 05/26/22 19:00 ALT 42 U/L (0-33) H 05/26/22 19:00 Alkaline Phosphatase 73 U/L (35-105) 05/26/22 19:00 C-Reactive Protein 121.9 mg/L (0.0-4.9) H 05/26/22 19:00 Total Protein 6.6 g/dL (6.6-8.7) 05/26/22 19:00 Albumin 3.9 g/dL (3.5-5.2) 05/26/22 19:00 Globulin 2.7 g/dL (1.3-4.6) 05/26/22 19:00 Discharge Plan Discharge Patient Disposition: Home Clinical Impression: Postoperative back pain Condition: Stable Prescriptions: No Action tizanidine 4 mg capsule 4 mg PO Q6H PRN (Reason: Headache) sumatriptan succinate [Imitrex] 100 mg tablet See Rx Instructions PO .COMPLEX Qty: 90 0RF Rx Instructions: take 1 tab at onset of headache; if no relief, may repeat 1 tab after at least 2 hrs; max = 2 tabs/24 hrs PO topiramate 100 mg tablet 100 mg PO DAILY 90 Days Qty: 90 3RF (DME) Intraoperative Neuromonitoring See Rx Instructions .Route .MEDSUPPLY Qty: 1 0RF Rx Instructions: As directed oxycodone-acetaminophen 10-325 mg tablet 1 tab PO Q4H PRN (Reason: pain) 7 Days Qty: 40 0RF oxycodone-acetaminophen 10-325 mg tablet 1 tab PO Q8H PRN (Reason: Pain) propranolol 20 mg tablet 20 mg PO BID pregabalin 300 mg capsule 300 mg PO BID Linzess 145 mcg capsule 145 mcg PO DAILY multivitamin Tablet 1 tab PO DAILY cetirizine [Zyrtec] 10 mg Tablet 10 mg PO DAILY naproxen 250 mg Tablet See Rx Instructions .ROUTE .COMPLEX Hold Instructions: Resume on 06/20/22. Rx Instructions: 500 mg orally in the morning / 250 mg orally in the evening famotidine [Pepcid] 20 mg Tablet 20 mg PO BEDTIME Discharge Orders: Discharge ED (Routine); Ordered 05/26/22 Ordered By: Troy Reynaga Referrals: Cintia Snow NP [Primary Care Provider] - Patient Instructions: Opioid Safety, Pain Management Activity Restrictions/Additional Instructions: Return for fever greater than 100, worsening pain despite treatment, drainage from your incision, any other concerning symptoms. Coding Level of Care Code ED The[employer]rical [employer] for Jorge Loja
[2022-05-26 18:59] VITALS: RESP 16
[2022-05-26] MEDS: HYDROmorphone 1 mg/mL INJ 1 mL IVP ×2 (18:59→20:37)
[2022-05-26] MEDS: ondansetron 2 mg/ML SDV 2 mL 4 MG IVP (18:59)
[2022-05-26 19:14] LABS: Basophils % 0.4 %; Eosinophils # 0.3 10^3/uL (0.0-0.8); Eosinophils % 3.3 %; Hematocrit 34.5 % (37.0-47.0); Lymphocytes % 36.3 %; Mean Corpuscular HGB Conc 31.9 g/dL (30.0-36.0); Mean Corpuscular Hemoglobin 28.6 pg (28.0-34.0); Mean Corpuscular Volume 89.8 fl (81-99); Mean Platelet Volume 10.5 fL (7.4-10.4); Monocytes # 0.8 10^3/uL (0.2-0.9); Monocytes % 9.7 %; Neutrophils # 4.01 10^3/uL (1.8-7.7); Neutrophils % 49.3 %; Nucleated Red Blood Cells % 0 %; Platelet Count 344 10^3/cmm (130-400); Red Blood Count 3.84 10^6/uL (4.1-5.3); Red Cell Distribution Width 13.5 % (12.1-15.1); White Blood Count 8.1 10^3/uL (4.0-10.0)
[2022-05-26 19:26] LABS: Erythrocyte Sedimentation Rate 29 mm/hr (0-15)
[2022-05-26 19:33] LABS: Alanine Aminotransferase 42 U/L (0-33); Albumin Level 3.9 g/dL (3.5-5.2); Alkaline Phosphatase 73 U/L (35-105); Anion Gap 17.6 (5-19); Aspartate Amino Transferase 31 U/L (0-32); Blood Urea Nitrogen 11 mg/dL (6-20); C Reactive Protein 121.9 mg/L (0.0-4.9); Calcium 9.2 mg/dL (8.5-10.5); Carbon Dioxide 21 mmol/L (22-29); Chloride 104 mmol/L (98-107); Globulin 2.7 g/dL (1.3-4.6); Glomerular Filtration Rate 94.2 mL/min (90-130); Glucose 104 mg/dL (65-115); Osmolality Calculated 288 mOsm/kg (285-295); Potassium 3.6 mmol/L (3.5-5.1); Sodium 139 mmol/L (136-145); Total Bilirubin 0.3 mg/dL (0.15-1.2); Total Protein 6.6 g/dL (6.6-8.7)
[2022-05-26 20:35] VITALS: BP 112/67; PULSE 109; RESP 20; O2SAT 96
== END 2022-05-26 20:50 | disposition home or self-care (01) ==
PROVIDERS: Emergency Provider Emergency Medicine; PCP Nurse Practitioner Family
DX: G89.18 Other acute postprocedural pain (principal); M54.9 Dorsalgia, unspecified; Z87.891 Personal history of nicotine dependence
CPT/HCPCS: 72132; 80053; 85025; 85651; 86140; 96374; 96375; 96376; 99285; J1170; J2405; Q9967

== ENCOUNTER → 2022-05-30 13:48 | Outpatient (BNVA) | payer MEDICARE, MEDICAID, SELFPAY | PROVIDERS: PCP Nurse Practitioner Family; Visit Provider Physician Assistant | DX: G89.18 Other acute postprocedural pain (principal); M54.9 Dorsalgia, unspecified | CPT/HCPCS: 99024 ==

== ENCOUNTER → 2022-06-06 09:46 | Outpatient (BNVA) | payer MEDICARE, MEDICAID, SELFPAY | PROVIDERS: PCP Nurse Practitioner Family; Visit Provider Physician Assistant | DX: Z98.1 Arthrodesis status (principal) | CPT/HCPCS: 72100; 99024 ==

== ENCOUNTER → 2022-07-04 09:59 | Outpatient (BNVA) | payer MEDICARE, MEDICAID, SELFPAY | PROVIDERS: PCP Nurse Practitioner Family; Visit Provider Physician Assistant | DX: Z98.1 Arthrodesis status (principal) | CPT/HCPCS: 72100; 99024 ==

== ENCOUNTER → 2022-07-09 13:30 | Outpatient (BNVA) | payer MEDICARE, MEDICAID, SELFPAY | PROVIDERS: PCP Nurse Practitioner Family; Visit Provider Physician Assistant | DX: Z98.1 Arthrodesis status (principal); M25.552 Pain in left hip | CPT/HCPCS: 99024 ==

== ENCOUNTER 2022-07-27 07:42 | Outpatient (CLI) | payer MEDICARE, MEDICAID, SELFPAY ==
--- NOTE | 2022-07-27 08:00 | MR_ITS ---
WS: [id number] EXAMINATION: MR hip LT wo con* [id number] ORDER DATE: 07/27/2022 7:47 AM COMPARISON: None. HISTORY: hip pain CONTRAST: None. TECHNIQUE: Coronal STIR of the Pelvis. Coronal proton density, coronal T1, axial T2 fat sat, axial T1 , sagittal T2 fat sat, and sagittal T1 performed of the hip. After contrast, axial T1 fat sat, coron al T1 fat sat, and sagittal T1 fat sat were performed. FINDINGS: Prior postoperative changes lumbar fusion and sacroiliac fusion. Mild degenerative narrowing LEFT hip . No acute fractures. Normal bone marrow signal in the LEFT hip and acetabulum. Partially visualized LEFT pubic rami appear normal. Normal bone marrow signal in the sacrum and sacroiliac joints. Normal bone marrow signal in the RIGHT hip. RIGHT ovarian cyst measuring 3.3 x 2.2 CM. A few other sigmoid d iverticuli. No other suspicious findings. MR/MR hip LT wo con* [id number] IMPRESSION: 1. Mild degenerative arthritis LEFT hip. No acute fractures. Normal bone marro w signal. 2. Normal acetabulum. 3. Partially visualized LEFT pubic rami are normal. 4. Postoperative changes bilateral sacroiliac fusion. Normal bone marrow signa l in the sacrum and sacroiliac joints. 5. RIGHT ovarian cyst measuring 3.3 x 2.2 CM.
== END 2022-07-27 07:43 | disposition home or self-care (01) ==
LOC: RAD 07:46
PROVIDERS: PCP Nurse Practitioner Family; Visit Provider Physician Assistant
DX: M25.552 Pain in left hip (principal); M48.062 Spinal stenosis, lumbar region with neurogenic claudication; Z98.1 Arthrodesis status; M16.12 Unilateral primary osteoarthritis, left hip
CPT/HCPCS: 73721

== ENCOUNTER 2022-07-27 07:47 | Outpatient (CLI) | payer MEDICARE, MEDICAID, SELFPAY ==
--- NOTE | 2022-07-27 09:00 | CT_ITS ---
WS: [id number] CT LUMBAR SPINE, noncontrast. HISTORY: Chronic back pain, worsening. TECHNIQUE: Contiguous 2.0 mm axial imaging are performed. Sagittal and coronal reformats are submitte d and reviewed. All CT scans at [facility] use at least one of these dose optimization techni ques: automated exposure control; mA and/or kV adjustment per patient size (includes targeted exams w here dose is matched to clinical indication); or iterative reconstruction. IV contrast: None DLP: 893.50 mGy.cm COMPARISON: 05/26/2022 and 07/04/2022 Posterior fusion hardware extends from T10 to S1. Interbody spacers at L3-4, L4-5 and L5-S1. No lucen cy around the hardware. No hardware fractures. L1-2: Large laminectomy defect. No stenosis. L2-3: Large posterior laminectomy defect. Mild disc bulging with a very shallow LEFT paracentral disc protrusion. No stenosis. L3-4: Interbody spacer extends 3.8 cm posterior from the disc. Large posterior laminectomy defect. L4-5: Large posterior laminectomy defect. Osteophyte versus the disc spaces are extending posterior b y 3.4 mm causing mild contact on the RIGHT lateral thecal sac and possibly the traversing RIGHT L5 ne rve root. L5-S1: Large posterior laminectomy defect. Mild osteophytic ridging. Bilateral screws extend horizontally through the SI joints. CT/CT lumbar spine wo con* [id number] IMPRESSION: 1. Extensive posterior spine fusion from T10 to S1. 2. Slight posterior displacement of the interbody spacers at L3-4 and L4-5. On the disc space. Very mild encroachment upon the ventral thecal sac. 3. Large posterior laminectomy defects throughout the lumbar spine. No fractur es.
== END 2022-07-27 07:48 | disposition home or self-care (01) ==
PROVIDERS: PCP Nurse Practitioner Family; Visit Provider Physician Assistant
DX: M54.9 Dorsalgia, unspecified (principal); M51.26 Other intervertebral disc displacement, lumbar region; Z98.1 Arthrodesis status
CPT/HCPCS: 72131; 73721

== ENCOUNTER → 2022-08-06 14:08 | Outpatient (BNVA) | payer MEDICARE, MEDICAID, SELFPAY | PROVIDERS: PCP Nurse Practitioner Family; Visit Provider Orthopaedic Surgery | DX: M16.12 Unilateral primary osteoarthritis, left hip (principal); M54.16 Radiculopathy, lumbar region; Z98.1 Arthrodesis status | CPT/HCPCS: 72100; 73502; 99024 ==

== ENCOUNTER → 2022-09-03 09:41 | Outpatient (BNVA) | payer MEDICARE, MEDICAID, SELFPAY | PROVIDERS: PCP Nurse Practitioner Family; Referring Provider Orthopaedic Surgery; Visit Provider Anesthesiology Pain Medicine | DX: M25.552 Pain in left hip (principal) | CPT/HCPCS: 99204 ==

== ENCOUNTER → 2022-09-04 15:13 | Outpatient (BNVA) | payer MEDICARE, MEDICAID, SELFPAY | PROVIDERS: PCP Nurse Practitioner Family; Visit Provider Specialist | DX: G25.3 Myoclonus (principal); F11.20 Opioid dependence, uncomplicated; M79.7 Fibromyalgia; R51.9 Headache, unspecified | CPT/HCPCS: 99214 ==

== ENCOUNTER → 2022-09-17 13:41 | Outpatient (BNVA) | payer MEDICARE, MEDICAID, SELFPAY | PROVIDERS: PCP Nurse Practitioner Family; Visit Provider Anesthesiology Pain Medicine | DX: M16.12 Unilateral primary osteoarthritis, left hip (principal) | CPT/HCPCS: 20610; 77002; J1030; J3490 ==

== ENCOUNTER → 2022-09-25 10:30 | Outpatient (BNVA) | payer MEDICARE, MEDICAID, SELFPAY | PROVIDERS: PCP Nurse Practitioner Family; Visit Provider Nurse Practitioner Women's Health | DX: N83.202 Unspecified ovarian cyst, left side (principal); R93.89 Abnormal findings on diagnostic imaging of other specified body structures; N85.4 Malposition of uterus | CPT/HCPCS: 76830 ==

== ENCOUNTER → 2022-10-01 10:03 | Outpatient (BNVA) | payer MEDICARE, MEDICAID, SELFPAY | PROVIDERS: PCP Nurse Practitioner Family; Visit Provider Anesthesiology Pain Medicine | DX: Z09 Encounter for follow-up examination after completed treatment for conditions other than malignant neoplasm (principal); M25.552 Pain in left hip | CPT/HCPCS: 99214 ==

== ENCOUNTER → 2022-11-19 11:00 | Outpatient (BNVA) | payer MEDICARE, MEDICAID, SELFPAY | PROVIDERS: PCP Nurse Practitioner Family; Visit Provider Orthopaedic Surgery | DX: M25.552 Pain in left hip; M54.2 Cervicalgia; M25.511 Pain in right shoulder; Z47.89 Encounter for other orthopedic aftercare | CPT/HCPCS: 72100; 99213 ==

== ENCOUNTER → 2022-11-27 10:30 | Outpatient (BNVA) | payer MEDICARE, MEDICAID, SELFPAY | PROVIDERS: PCP Nurse Practitioner Family; Referring Provider Specialist; Visit Provider Specialist | DX: G43.711 Chronic migraine without aura, intractable, with status migrainosus (principal); G45.9 Transient cerebral ischemic attack, unspecified; G25.3 Myoclonus | CPT/HCPCS: 95813 ==

== ENCOUNTER → 2023-01-09 11:18 | Outpatient (BNVA) | payer MEDICARE, MEDICAID, SELFPAY | PROVIDERS: PCP Nurse Practitioner Family; Visit Provider Nurse Practitioner Women's Health | DX: N83.292 Other ovarian cyst, left side (principal); N83.201 Unspecified ovarian cyst, right side | CPT/HCPCS: 76830 ==

== ENCOUNTER → 2023-04-23 08:48 | Outpatient (BNVA) | payer MEDICARE, MEDICAID, SELFPAY | PROVIDERS: PCP Nurse Practitioner Family; Visit Provider Nurse Practitioner Women's Health | DX: N83.291 Other ovarian cyst, right side (principal) | CPT/HCPCS: 76830 ==

== ENCOUNTER → 2023-05-07 15:00 | Outpatient (BNVA) | payer MEDICARE, MEDICAID, SELFPAY | PROVIDERS: PCP Nurse Practitioner Family; Visit Provider Nurse Practitioner Women's Health | DX: Z01.419 Encounter for gynecological examination (general) (routine) without abnormal findings (principal) | CPT/HCPCS: 87624 ==

== ENCOUNTER 2023-05-12 15:51 | Emergency (ER) | payer MEDICARE, MEDICAID, SELFPAY ==
[2023-05-12 15:56] VITALS: BP 153/90; PULSE 106; RESP 14; TEMP 36.7; O2SAT 100; BMI 30.4
--- NOTE | 2023-05-12 16:11 | XRR_ITS ---
PROCEDURE INFORMATION: Exam: XR Lumbosacral Spine Exam date and time: 05/12/2023 4:51 PM Age: 37 years old Clinical indication: Low back pain; Prior surgery; Surgery date: 6+ months; Surgery type: Spinal fusion; Additional info: Fall TECHNIQUE: Imaging protocol: Radiologic exam of the lumbosacral spine. Views: 2 or 3 views. COMPARISON: CR XR lumbar spine 2-3V* [id number] 11/19/2022 11:18 AM FINDINGS: Bones/joints: Thoracolumbar fusion hardware in place with transpedicular screws and interlocking rods from T10 through S1. Bilateral SI joint fusion hardware in place. No gross evidence of hardware complication. No evidence of acute fracture or subluxation. The sacrum is partially obscured by bowel gas/stool. Soft tissues: Grossly unremarkable. XR/XR lumbar spine 2-3V* [id number] IMPRESSION: 1. No evidence of acute fracture or subluxation of the lumbar spine. 2. Thoracolumbar fusion hardware in place without evidence of complication. If there is ongoing clinical concern, consider correlation with CT.
--- NOTE | 2023-05-12 16:12 | XRR_ITS ---
PROCEDURE INFORMATION: Exam: XR Right Hip Exam date and time: 05/12/2023 4:47 PM Age: 37 years old Clinical indication: Hip pain; Right hip; Prior surgery; Surgery date: 6+ months; Surgery type: Spinal fusion; Additional info: Fall TECHNIQUE: Imaging protocol: Radiologic exam of the right hip. Views: 1 view hip with pelvis when performed. COMPARISON: US transvaginal [id number] 04/23/2023 8:55 AM FINDINGS: Bones/joints: Mild osteoarthritis without evidence of fracture or subluxation of the right hip. Pelvic ring is grossly intact. Sacrum and coccyx are partially obscured by bowel gas/stool. Bilateral SI joint fusion hardware and lumbosacral fusion hardware partially visualized. Soft tissues: Grossly unremarkable. XR/XR hip RT 2-3V wo/w pel* [id number] IMPRESSION: 1. No evidence of fracture or subluxation.
--- NOTE | 2023-05-12 17:06 | W.ED.EXTPRO ---
HPI - Extremity Problem General: Chief complaint: Extremity Injury, Lower Stated complaint: right hip pain Time Seen by Provider: 05/12/23 16:11 Source: patient Mode of arrival: ambulatory Limitations: no limitations History of Present Illness: 37-year-old female states that she had stepped awkwardly roughly 2 weeks ago trying to avoid her dog she states she had somehow twisted her right hip and has been having right-sided hip along with low back pain radiates down her right leg since then. She had a history of back surgeries in the past along with chronic back pain does see his pain specialist states she has been taking her oxycodone with minimal relief. She denies any fever denies any bowel or bladder incontinence Associated symptoms: Deny chest pain, fever(s) or rash Review of Systems Const: Denies: fever(s), chills, body aches or change in appetite ENMT: Denies: throat pain or dental pain Card: Denies: chest pain Resp: Denies: dyspnea GI: Denies: abdominal pain, nausea, vomiting or diarrhea Musc: Reports: back pain and extremity pain; Denies: neck pain Skin/Breast: Denies: rash Neuro: Denies: headache(s) PFSH ED PFSH: Medical History Migraine without aura Fibromyalgia syndrome Irritable bowel syndrome (IBS) CONSTIPATION Heartburn Bipolar 1 disorder No pertinent past medical history neghx: htn,dm,thyroid,pe PCP: Cintia Manzano DVT (deep venous thrombosis) (~2001) L leg-- OCP related Genital herpes Depression Surgical History History of back surgery (~05/22/22) Procedure: 1. T10 to L4 posterior spine fusion 2. T10 to L4 instrumentation 3. L1/2 laminectomy with partial facetectomy 4. L2/3 Laminectomy with partial facetectomy 5. use of computer navigation/stereotactic for spine 6. bone marrow aspirate right iliac crest 7. use of autograft from same incision 8. use of allograft H/O LEEP (~2019) Hx of appendectomy (~1989) History of back surgery (~2017) S/P fusion of sacroiliac joint (~2018) Bilateral History of hip surgery (~2019) Right-- femur head repair Hx of cholecystectomy (~2019) Hx of shoulder surgery (~2020) Right shoulder Family History Mother Uterine cancer Other Adopted Physical Exam Const: COMMON NORMALS: no acute distress, patient oriented x3 and healthy appearing HENMT: COMMON NORMALS: normocephalic and atraumatic HEAD & SCALP: normocephalic and atraumatic Eye: COMMON NORMALS: Equal, round and reactive pupils present and EOMs intact bilaterally PUPIL: Yes Equal, round and reactive pupils present Neck/C-Spine: COMMON NORMALS: full ROM and supple Chest: COMMONS NORMALS: normal inspection of the chest Resp: COMMON NORMALS: normal respiratory effort Extremity: COMMON NORMALS: normal to inspection and full ROM NARRATIVE EXTREMITY EXAM: Some slight tenderness over right lower back and hip no obvious deformity Neuro: COMMON NORMALS: patient oriented x3, moves all extremities and no focal motor deficits Psych: COMMON NORMALS: mental status grossly normal, Normal thought process present and cooperative THOUGHT PROCESS: Normal thought process present Skin: COMMON NORMALS: no rashes or lesions noted and no wounds GENERAL SKIN EXAM: no rashes or lesions noted Course Vital Signs: Vital signs: Vital Signs Temperature 98.1 F 05/12/23 15:56 Pulse Rate 106 H 05/12/23 15:56 Respiratory Rate 14 05/12/23 15:56 Blood Pressure 153/90 05/12/23 15:56 Pulse Oximetry 100 05/12/23 15:56 Oxygen Delivery Me thod Room Air 05/12/23 15:56 MDM - Extremity (Nontraumatic) Medical Decision Making Patient presents with right hip pain her exam here is benign x-rays are normal did give her IM morphine along with Decadron she is to follow-up with her pain specialist she is return if worsening she understands agrees to plan. Medical Records I reviewed the patient's medical records. Lab Data Radiology Impressions Lumbar Spine X-Ray 05/12/23 16:11 IMPRESSION: 1. No evidence of acute fracture or subluxation of the lumbar spine. 2. Thoracolumbar fusion hardware in place without evidence of complication. If there is ongoing clinical concern, consider correlation with CT. Hip/Pelvis X-Ray 05/12/23 16:12 IMPRESSION: 1. No evidence of fracture or subluxation. All radiology interpretation(s) finalized by discharge Discharge Plan Discharge Patient Disposition: Home Clinical Impression: Acute pain of right hip Condition: Stable Prescriptions: No Action amitriptyline 25 mg tablet 25 mg PO DAILY 30 Days Qty: 120 4RF sumatriptan succinate [Imitrex] 100 mg tablet See Rx Instructions PO .COMPLEX Qty: 120 4RF Rx Instructions: take 1 tab at onset of headache; if no relief, may repeat 1 tab after at least 2 hrs; max = 2 tabs/24 hrs PO tizanidine 4 mg capsule 4 mg PO Q6H Qty: 120 4RF Benadryl Allergy 50 mg tablet 100 mg PO .nightly pyridoxine (vitamin B6) 25 mg tablet 25 mg PO DAILY ropinirole 2 mg tablet 2 mg PO DAILY ferrous sulfate 325 mg (65 mg iron) tablet 325 mg PO DAILY azelastine 137 mcg (0.1 %) aerosol,spray 1 spray intranasal BID Rx Instructions: administer into each nostril epinephrine 0.3 mg/0.3 mL auto-injector 0.3 mg IM Q4H PRN fluticasone propionate [Flonase Allergy Relief] 50 mcg/actuation spray,suspension 2 spray intranasal DAILY Rx Instructions: administer into each nostril naproxen sodium [Aleve] 220 mg capsule 220 mg PO BID PRN Digestive Advantage Advanced 10 billion cell capsule PO prenat.vits,patricia,[id number] Tablet 1 tab PO DAILY oxycodone 10 mg tablet 10 mg PO QID PRN topiramate 100 mg tablet See Rx Instructions .ROUTE .COMPLEX Qty: 90 3RF Dose Instruction: TAKE ONE TABLET BY MOUTH DAILY FOR 90 DAYS Rx Instructions: TAKE ONE TABLET BY MOUTH DAILY FOR 90 DAYS pregabalin 300 mg capsule 300 mg PO BID Linzess 145 mcg capsule 145 mcg PO DAILY famotidine [Pepcid] 20 mg tablet 40 mg PO BEDTIME Patient Comments: 1 IN THE MORNING AND 1 AT NIGHT cetirizine [Zyrtec] 10 mg tablet 40 mg PO DAILY Patient Comments: 2 IN THE MORNING AND 2 AT NIGHT Discharge Orders: Discharge ED (Routine); Ordered 05/12/23 Ordered By: Shyam Aiken Discharge Diet: Advance as tolerated Discharge Activity: Resume usual activity Patient Instructions: Hip Pain (ED) Coding Level of Care Code ED Inspector [employer] for Jorge Loja
[2023-05-12] MEDS: dexamethasone 10 mg/mL INJ IM (17:12)
[2023-05-12] MEDS: morphine 4 mg/mL SDV 1 mL IM (17:13)
[2023-05-12 17:18] VITALS: BP 137/87; PULSE 99; RESP 15; O2SAT 99
== END 2023-05-12 17:19 | disposition home or self-care (01) ==
PROVIDERS: Emergency Provider Emergency Medicine
DX: M25.551 Pain in right hip (principal)
CPT/HCPCS: 72100; 73502; 96372; 99284; J1100; J2270

== ENCOUNTER → 2023-05-15 15:27 | Outpatient (BNVA) | payer MEDICARE, MEDICAID, SELFPAY | PROVIDERS: PCP Nurse Practitioner Family; Visit Provider Orthopaedic Surgery | DX: M25.551 Pain in right hip; Z98.1 Arthrodesis status; M54.50 Low back pain, unspecified | CPT/HCPCS: 99214 ==

== ENCOUNTER 2023-06-05 11:42 | Outpatient (CLI) | payer MEDICARE, MEDICAID, SELFPAY ==
--- NOTE | 2023-06-05 12:00 | CT_ITS ---
WS: [id number] CT LUMBAR SPINE TECHNIQUE: Noncontrast CT of the lumbar spine with coronal and sagittal reformatted images. CLINICAL INFORMATION: back pain COMPARISON: CT 07/27/2022 DLP: 1016.[address] scans at [facility] use at least one of these dose optimization techniques: automated e xposure control; mA and/or kV adjustment per patient size (includes targeted exams where dose is matc hed to clinical indication); or iterative reconstruction. FINDINGS: Stable appearing pedicle screw fixation with dorsal interconnecting rods and fusion extending from T1 0-S1. Interbody fusion grafts L3-L4 L4-L5 and L5-S1. Hardware appears intact. Interconnecting rods ap pear intact. Large decompressive laminectomy defects L1-L5. Evidence of bony bridging beyond the conf yuliana of the grafts. Sacroiliac fusion. T12-L1: Disc osteophyte complex with slight effacement of the ventral thecal sac. Spinal canal and fo ramen are patent. L1-L2: Laminectomy defects. Spinal canal and foramen are patent. L2-L3: Laminectomy defects. Spinal canal and foramen are patent. L3-L4: Interbody fusion graft. Laminectomy defects. Spinal canal and foramen are patent. L4-L5: Laminectomy defects. Interbody fusion graft. Spinal canal and foramen are patent. L5-S1: Laminectomy defects. Interbody fusion graft. Spinal canal is patent. Mild LEFT and no signific ant RIGHT foraminal narrowing. Adrenal glands are normal. Visualized pelvic bony structures: Normal. Paravertebral soft tissues: Normal. IMPRESSION: 1. Alignment appears unchanged compared to previous. 2. Stable appearing pedicle screw fixation with interconnecting rods T10-S1 with bilateral sacroilia c fusion. No evidence of hardware loosening. 3. Interbody fusion graft L3-L5 with evidence of bony bridging beyond the confines of the grafts. 4. Mild LEFT L5-S1 bony foraminal narrowing. 5. Wide decompressive laminectomies L1-L5.
== END 2023-06-05 11:43 | disposition home or self-care (01) ==
LOC: RAD 11:42
PROVIDERS: PCP Nurse Practitioner Family; Visit Provider Orthopaedic Surgery
DX: M54.9 Dorsalgia, unspecified (principal)
CPT/HCPCS: 72131

== ENCOUNTER → 2023-06-06 14:03 | Outpatient (BNVA) | payer MEDICARE, MEDICAID, SELFPAY | PROVIDERS: PCP Nurse Practitioner Family; Visit Provider Orthopaedic Surgery | DX: M54.2 Cervicalgia (principal); M54.9 Dorsalgia, unspecified; M25.559 Pain in unspecified hip; M79.606 Pain in leg, unspecified | CPT/HCPCS: 99214 ==

== ENCOUNTER 2023-07-08 12:11 | Observation (INO) | payer MEDICARE, MEDICAID, SELFPAY ==
--- NOTE | 2023-07-04 13:38 | ANES.PREANE2 ---
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 Social Tobacco and No alcohol Exam alert, oriented x 3, clear to auscultation bilaterally and regular rate & rhythm GI Gastroesophageal Reflux Disease Neuropsych Transient Ischemic Attack Anesthetic Plan ASA status: 2 Anesthesia: General Medications/Allergies Home Medications Medication Instructions Recorded Confirmed Last Taken Type linaclotide 145 mcg capsule 145 mcg PO DAILY 12/14/21 07/04/23 07/04/23 History (Linzess) pregabalin 300 mg capsule 300 mg PO BID 12/14/21 07/04/23 07/04/23 History cetirizine 10 mg tablet (Zyrtec) 10 mg PO BID 08/06/22 07/04/23 07/04/23 History famotidine 20 mg tablet (Pepcid) 40 mg PO BEDTIME 08/06/22 07/04/23 07/03/23 History oxycodone 10 mg tablet 10 mg PO QID PRN Pain 08/06/22 07/04/23 07/04/23 History prenat.vits,patricia,qyi-rgef-dmxnl 1 tab PO DAILY 08/06/22 07/04/23 07/04/23 History L.acidoph, paracasei,B. lactis 10 1 cell PO BEDTIME 05/07/23 07/04/23 07/04/23 History billion cell capsule (Digestive Advantage Advanced Probiotic) azelastine 137 mcg (0.1 %) nasal 1 spray intranasal BID 05/07/23 07/04/23 07/04/23 History spray aerosol diphenhydramine HCl 50 mg tablet 100 mg PO .nightly 05/07/23 07/04/23 07/03/23 History (Benadryl Allergy) epinephrine 0.3 mg/0.3 mL 0.3 mg IM Q4H PRN allergies 05/07/23 07/04/23 Unknown History injection, auto-injector ferrous sulfate 325 mg (65 mg 325 mg PO DAILY 05/07/23 07/04/23 07/04/23 History iron) tablet fluticasone propionate 50 2 spray intranasal DAILY 05/07/23 07/04/23 07/04/23 History mcg/actuation nasal spray,suspension (Flonase Allergy Relief) ropinirole 2 mg tablet 2 mg PO DAILY 05/07/23 07/04/23 07/04/23 History amitriptyline 25 mg tablet 25 mg PO BEDTIME 07/04/23 07/04/23 07/03/23 History cephalexin 500 mg capsule 500 mg PO BID 07/04/23 07/04/23 07/04/23 History cyanocobalamin (vitamin B-12) 50 50 mcg PO DAILY 07/04/23 07/04/23 07/04/23 History mcg tablet (Vitamin B-12) sumatriptan succinate 100 mg See Rx Instructions PO .COMPLEX 07/04/23 07/04/23 Unknown History tablet (Imitrex) PRN Migraine Headache tizanidine 4 mg capsule 4 mg PO Q6H PRN muscle spasms 07/04/23 07/04/23 07/04/23 History topiramate 100 mg tablet 100 mg PO DAILY 07/04/23 07/04/23 07/04/23 History vitamin B complex 1 cap PO DAILY 07/04/23 07/04/23 07/04/23 History Allergies Allergy/AdvReac Type Severity Reaction Status Date / Time codeine Allergy Unknown Verified 06/30/23 08:26 hydrocodone Allergy Unknown Verified 06/30/23 08:26 Sulfa (Sulfonamide Allergy Unknown Verified 06/30/23 08:26 Antibiotics) Hornets Allergy welps Uncoded 06/30/23 08:26 PENDING SALE TO [facility] Anesthesia Medical History Migraine without aura Fibromyalgia syndrome Irritable bowel syndrome (IBS) CONSTIPATION Heartburn Bipolar 1 disorder No pertinent past medical history neghx: htn,dm,thyroid,pe PCP: Cintia Doshi [place] DVT (deep venous thrombosis) (~2001) L leg-- OCP related Genital herpes Depression Surgical History History of back surgery (~05/22/22) Procedure: 1. T10 to L4 posterior spine fusion 2. T10 to L4 instrumentation 3. L1/2 laminectomy with partial facetectomy 4. L2/3 Laminectomy with partial facetectomy 5. use of computer navigation/stereotactic for spine 6. bone marrow aspirate right iliac crest 7. use of autograft from same incision 8. use of allograft H/O LEEP (~2019) Hx of appendectomy (~1989) History of back surgery (~2017) S/P fusion of sacroiliac joint (~2018) Bilateral History of hip surgery (~2019) Right-- femur head repair Hx of cholecystectomy (~2019) Hx of shoulder surgery (~2020) Right shoulder Family History Mother Uterine cancer Other Adopted Female Reproductive History Date of last menstrual period: 06/23/23 Data Anesthesia Cardiac Studies: No Data to Display
[2023-07-04 13:41] LABS: Basophils # 0.1 10^3/uL (0.0-0.1); Basophils % 0.8 %; Eosinophils # 0.2 10^3/uL (0.0-0.8); Eosinophils % 2.3 %; Hematocrit 39.8 % (36-47); Lymphocytes # 2.9 10^3/uL (0.8-4.8); Lymphocytes % 35.2 %; Mean Corpuscular HGB Conc 33.2 g/dL (30-55); Mean Corpuscular Hemoglobin 28.4 pg (27-33); Mean Corpuscular Volume 85.8 fl (85-98); Mean Platelet Volume 10.4 fL (7.4-10.4); Monocytes # 0.5 10^3/uL (0.2-0.9); Monocytes % 5.6 %; Neutrophils # 4.62 10^3/uL (1.8-7.7); Neutrophils % 55.9 %; Nucleated Red Blood Cells % 0 %; Platelet Count 302 10^3/cmm (157-399); Red Blood Count 4.64 10^6/uL (3.85-5.65); Red Cell Distribution Width 13.3 % (12.1-15.1); White Blood Count 8.27 10^3/uL (3.29-11.43)
[2023-07-04 13:45] LABS: Add Urine Microscopic? NO; Charge for UA Resulting for Rev
[2023-07-04 13:58] LABS: Alanine Aminotransferase 29 U/L (0-33); Albumin Level 4.5 g/dL (3.5-5.2); Alkaline Phosphatase 75 U/L (35-105); Anion Gap 15.4 (5-19); Aspartate Amino Transferase 18 U/L (0-32); Blood Urea Nitrogen 14 mg/dL (6-20); Calcium 8.9 mg/dL (8.5-10.5); Carbon Dioxide 24 mmol/L (22-29); Chloride 105 mmol/L (98-107); Globulin 2.7 g/dL (1.3-4.6); Glomerular Filtration Rate 93.6 mL/min (90-130); Glucose 131 mg/dL (65-115); Osmolality Calculated 294 mOsm/kg (285-295); Potassium 3.4 mmol/L (3.5-5.1); Sodium 141 mmol/L (136-145); Total Bilirubin 0.2 mg/dL (0.15-1.2); Total Protein 7.2 g/dL (6.6-8.7)
[2023-07-04 13:59] LABS: Bilirubin Urine Neg (Negative); Blood Urine Neg (Negative); Glucose Urine UA Norm (Normal); Ketones Urine Negative (Negative); Leukocyte Esterase Urine Negative (Negative); Nitrate Urine Negative (Negative); Protein Urine Neg (Negative); Urine Appearance Clear (CLEAR); Urine Color Yellow (Yellow); Urobilinogen Urine Neg (Negative); pH Urine 6 (5-7)
[2023-07-04 14:07] LABS: OR HCG Qualitative Urine Negative (Negative)
[2023-07-08] VITALS (19 sets, daily range): BP systolic 107–157; BP diastolic 67–98; PULSE 68–104; RESP 12–20; TEMP 36.1–36.6; O2SAT 95–99; BMI 30.4
[2023-07-08 08:32] LABS: OR HCG Qualitative Urine Negative (Negative)
[2023-07-08] MEDS: sodium chloride 0.9% 500 ML IV (09:00)
[2023-07-08] MEDS: scopolamine 1.5 Patch 1 PATCH TRANSDERMA (09:00)
--- NOTE | 2023-07-08 09:19 | W.PM.OPSUD ---
Surgery/Procedure H&P Update DATE OF PROCEDURE: July 08, 2023 DATE H&P PERFORMED: 06/30/23 H&P UPDATE INFORMATION: I have reviewed H&P completed within last 30 days, I have examined patient prior to procedure and No changes to prior documentation PREOP DIAGNOSIS: Right ovarian cyst, pelvic pain PLANNED PROCEDURE: Operation Date: 07/08/23 09:10 Proposed Procedures p Diagnostic laparoscopy 58951, possible cystectomy 58127, possible oophorectomy 28340 N83.8(Not Applicable) - Jude Torres MD s possible cystectomy(Not Applicable) - Jude Torres MD s possible oophorectomy 82816(Not Applicable) - Jude Torres MD
--- NOTE | 2023-07-08 09:20 | P.ANESUD_ITS ---
Pre-Anesthetic Update Pre-Anesthetic Assessment: Date of Surgery/Procedure: 07/08/23 Preop Deepti gnosis: Right ovarian cyst, pelvic pain Proposed Procedure: Operation Date: 07/08/23 09:10 Proposed Procedures p Diagnostic laparoscopy 56297, possible cystectomy 48817, possible oophorectomy 20742 N83.8(Not Applicable) - Jude Torres MD s possible cystectomy(Not Applicable) - Jude Torres MD s possible oophorectomy 87524(Not Applicable) - Jude Torres MD Any changes to Pre-Anesthetic Assessment?: No Last Intake: Intake Last Liquid Date 07/07/23 Last Liquid Time 23:55 Last Solid Date 07/07/23 Last Solid Time 22:30 Vitals: Temperature 97.8 F 07/08/23 08:12 Temperature Source Temporal Artery S can 07/08/23 08:12 Pulse Rate 92 07/08/23 08:12 Pulse Rhythm Regular 07/08/23 08:22 Pulse Strength 3+ Normal 07/08/23 08:22 Respiratory Rate 16 07/08/23 08:12 Blood Pressure 107/77 07/08/23 08:12 Blood Pressure Yue n 87 07/08/23 08:12 Pulse Oximetry 97 07/08/23 08:12 Oxygen Delivery Me thod Room Air 07/08/23 08:22 Exam: Pre-Anes Outpt Exam: alert, oriented x 3, clear to auscultation bilaterally and regular rate & rhythm Cardiac Studies: No Data to Display
[2023-07-08] MEDS: sodium chloride 0.9% 1,000 ML 30 ML IV (09:29)
[2023-07-08] MEDS: ceFAZolin 2,000 MG in sodium chloride 0.9% (plus) 50 ML 100 MG IV (09:33)
[2023-07-08] MEDS: BUPivacaine 0.25% INJ 10 mL INJECTION (10:15)
--- NOTE | 2023-07-08 11:34 | P.OP_ITS ---
Operative Report Date of procedure: July 08, 2023 Pre-op diagnosis: Right ovarian cyst Pelvic pain Post-op diagnosis: same Post-op diagnosis: Omental adhesion Procedure done: Diagnostic laparoscopy Lysis of adhesions Right oophorectomy Specimens removed/disposition: Right ovary Surgeon: Jude Torres MD Estimated blood loss (mL): 20 IV fluids (mL): 700 Urine output (mL): 200 Complications: none Findings: Omental adhesions Enlarged right adhered ovary Procedure: After informed consent, the patient was taken to the operating room where general anesthesia was administered. The patient was examined under anesthesia and found to have a normal uterus with normal adnexa. She was placed in the dorsal lithotomy position and prepped and draped in sterile fashion. Pre- Procedure Time-Out verifying the correct patient identity, correct procedure verified with consent, correct site and side, correct patient position, availability of correct implants and any special equipment or requirements was performed and acknowledge by the OR team. A weighted speculum was placed in the vagina, and the anterior lip of cervix was grasped with the single toothed tenaculum. A uterine manipulator was advanced into the endocervical. Tenaculum was removed after uterine manipulator was secured. The speculum was removed from the vagina. An intraumbilical incision was made with a scalpel. While tenting up on the abdomen, a Verres needle with sleeve was admitted into the intra-abdominal cavity. A saline drop test was performed and noted to be within normal limits. Pneumoperitoneum was attained with 4 liters of carbon dioxide. The Verres needle was removed. A 5 mm trocar and sleeve were admitted into the abdomen and laparoscopic confirmation of location was achieved, A second incision was made 3 cm above the symphysis pubis, and a 12 mm trocar and sleeve were admitted into the abdomen under direct, laparoscopic visualization without complication. At the third incision was made on the left lower quadrant and a 5 mm trocar with sleeve was made into the abdomen under direct laparoscopic visualization without complications. A survey revealed abdominal omental adhesions to the anterior abdominal wall. The pelvic survey shows normal uterus, and left adnexa. The right ovary was enlarged and adhered to the pelvic wall. A 5 mm blunt probe was advanced through the second trocar sleeve, and light manipulation of ovaries and uterus to assess the posterior aspects was performed. Using blunt LigaSure laparoscopic instrument was used to lyse the omental adhesions and adhesions to right ovary., With laparoscopic [place], scopic LigaSure blunt instrument and Hydrodissection the right ovary was freed from the adhered right pelvic wall. An Endobag was introduced into the abdomen through the 12 mm suprapubic trocar. Then the right ovary was placed in an Endobag and evacuated from the abdominal cavity. Hemostasis was reassured and Surgicel was placed over the right pelvic wall raw surface. All trocars were removed without complication under direct the visualization and ensuring hemostasis. Then the carbon dioxide was allowed to escape from the abdomen. The suprapubic incision was closed with 2-0 Vicry. The intraumbilical and left lower quadrant incision were closed with 3-0 Vicryl. Subcutaneous lidocaine was infiltrated at all the incision sites and incisions were covered with Dermabond. The instruments were removed from the vagina, and excellent hemostasis was noted. The patient tolerated the procedure well, and sponge, lap and needle count were correct times two. The patient taken to the recovery room in good condition.
[2023-07-08] MEDS: fentaNYL 50 mcg/mL INJ 2mL IVP (12:00)
--- NOTE | 2023-07-08 12:20 | ANE.PACU2 ---
Inpatient post-anesthesia follow up: Airway intact: Yes Vital signs: Temperature 97.6 F Pulse Rate 79 Respiratory Rate 17 Blood Pressure 115/78 Pulse Oximetry 97 Oxygen Delivery Me thod Room Air Oxygen Flow Rate Fraction of Inspir ed Oxygen Hydration adequate: Yes Nausea and vomiting: No Pain level: 1 Mental status: Baseline
[2023-07-08] MEDS: dextrose 5%-lactated ringers 1,000 ML 125 ML IV (12:58)
[2023-07-08] MEDS: ketorolac 30 mg/mL INJ IVP ×2 (12:58→19:13)
[2023-07-08] MEDS: pregabalin 150 mg Capsule 300 MG PO (19:13)
[2023-07-08] MEDS: docusate sodium 100 mg Capsule PO (19:13)
[2023-07-08] MEDS: cephALEXin 500 mg Capsule PO (19:13)
[2023-07-08] MEDS: cetirizine 10 mg Tablet PO (19:13)
[2023-07-08 20:14] LABS: Basophils % 0.2 %; Eosinophils % 0.1 %; Hematocrit 38.6 % (36-47); Lymphocytes # 1.3 10^3/uL (0.8-4.8); Lymphocytes % 10.8 %; Mean Corpuscular HGB Conc 33.2 g/dL (30-55); Mean Corpuscular Hemoglobin 28.7 pg (27-33); Mean Corpuscular Volume 86.5 fl (85-98); Mean Platelet Volume 10.9 fL (7.4-10.4); Monocytes # 0.2 10^3/uL (0.2-0.9); Monocytes % 1.8 %; Neutrophils # 10.75 10^3/uL (1.8-7.7); Neutrophils % 86.7 %; Nucleated Red Blood Cells % 0 %; Platelet Count 301 10^3/cmm (157-399); Red Blood Count 4.46 10^6/uL (3.85-5.65); Red Cell Distribution Width 13.3 % (12.1-15.1); White Blood Count 12.39 10^3/uL (3.29-11.43)
[2023-07-08 20:57] LABS: Slide Review Slide Review Perform
== END 2023-07-08 22:05 | disposition home or self-care (01) ==
LOC: OBGYN 12:25
PROVIDERS: Admitting Provider Obstetrics & Gynecology; PCP Nurse Practitioner Family; Visit Provider Obstetrics & Gynecology
PROC: (CPT 49320; principal; 2023-07-08 09:00)
PROC: (CPT 58720; 2023-07-08 09:00)
PROC: (CPT 58661; 2023-07-08 09:00)
DX: N83.02 Follicular cyst of left ovary (principal); K21.9 Gastro-esophageal reflux disease without esophagitis; Z86.73 Personal history of transient ischemic attack (TIA), and cerebral infarction without residual deficits; M79.7 Fibromyalgia; Z86.718 Personal history of other venous thrombosis and embolism; N73.6 Female pelvic peritoneal adhesions (postinfective)
CPT/HCPCS: 58661; 80053; 81003; 84703; 85025; 86850; 86900; 88305; 96374; G0378; J0330; J0690; J1100; J1885; J2250; J2405; J2704; J2710; J3010; J3490; J7030; J7040; J7121

== ENCOUNTER → 2023-08-26 11:05 | Outpatient (BNVA) | payer MEDICARE, MEDICAID, SELFPAY | PROVIDERS: PCP Nurse Practitioner Family; Visit Provider Orthopaedic Surgery | DX: M54.9 Dorsalgia, unspecified (principal); M25.559 Pain in unspecified hip; Z98.1 Arthrodesis status | CPT/HCPCS: 99214 ==

== ENCOUNTER 2023-10-29 06:30 | Outpatient (CLI) | payer MEDICARE, MEDICAID, SELFPAY ==
--- NOTE | 2023-10-29 06:29 | USCV_ITS ---
Karime Burgess Age: 37 Gender: F : 1985 Exam Date: 10/29/2023 06:37 Ordering Phys: Keo Villalba Technologist: Exam Location: [facility] [place]_ Indication: rt arm cord pain and swelling PROCEDURES: Venous duplex imaging was performed in only the right upper extremity. The following venous structures were evaluated: internal jugular vein, subclavian vein, axillary vein, and brachial veins. In addition, the basilic vein, cephalic vein, radial vein, and ulnar vein. FINDINGS: There is thrombus in the rt Basilic from the elbow to the rt Upper arm. The rest of the Arm is normal CONCLUSIONS Superficial thrombus RIGHT Basilic vein from elbow to RIGHT upper arm Remainder patent Prelime to provider by Cabinet Worker at time of exam Reggie Vincent MD (Electronically Signed) Final Date: 29 October 2023 08:53 S
== END 2023-10-29 06:31 | disposition home or self-care (01) ==
PROVIDERS: PCP Nurse Practitioner Family; Visit Provider Nurse Practitioner Family
DX: I65.1 Occlusion and stenosis of basilar artery (principal)
CPT/HCPCS: 93971

== ENCOUNTER 2023-11-12 08:01 | Outpatient (CLI) | payer MEDICARE, MEDICAID, SELFPAY ==
--- NOTE | 2023-11-12 08:06 | CT_ITS ---
WS: [id number] CT PELVIS NONCONTRAST HISTORY: HX OF FUSION OF LSPINE/LUMBAR STENOSIS W/NEUROGENIC CLAUDICA TECHNIQUE: Contiguous imaging is performed of the pelvis without contrast. Coronal and sagittal refor mats are reviewed. All CT scans at [facility] use at least one of these dose optimization liza hniques: automated exposure control; mA and/or kV adjustment per patient size (includes targeted exam s where dose is matched to clinical indication); or iterative reconstruction. DLP: 490.11 mGy.cm COMPARISON: CT lumbar spine 06/05/2023 Status post prior extensive lumbosacral fusion. Vertical rods and pedicle screws throughout the lumba r spine. There are 2 screws extending horizontally through each SI joint. No lucency around the sacra l screws. SI joints are still patent. There is no widening of the SI joints. There is no osseous or b one fusion identified. No destructive bone process. No fractures. Large posterior laminectomy defects at L4 and L5. Mild central abdominal wall hernia contains fat only. Complex cystic mass is identified in the LEFT adnexa measuring 5.6 x 3.9 cm. This mass was identified on prior ultrasounds. There is an additional cyst in the RIGHT adnexa which is probably ovarian rela adri. These adnexal masses have been previously described. Prior ultrasounds have been performed. CT/CT pelvis wo con [id number] IMPRESSION: 1. Screw fixation across the SI joints. There is no osseous fusion. No lucency around the screws or change in position. 2. Extensive lumbar fusion hardware is also identified. Large posterior tom ctomy defects in the lower lumbar spine identified.
== END 2023-11-12 08:02 | disposition home or self-care (01) ==
LOC: RAD 08:02
PROVIDERS: PCP Nurse Practitioner Family; Visit Provider Orthopaedic Surgery Orthopaedic Surgery of the Spine
DX: M48.062 Spinal stenosis, lumbar region with neurogenic claudication (principal); Z98.890 Other specified postprocedural states; Z98.1 Arthrodesis status
CPT/HCPCS: 72192

== ENCOUNTER → 2023-12-05 10:50 | Outpatient (BNVA) | payer MEDICARE, MEDICAID, SELFPAY | PROVIDERS: PCP Nurse Practitioner Family; Visit Provider Obstetrics & Gynecology | DX: N83.8 Other noninflammatory disorders of ovary, fallopian tube and broad ligament (principal) | CPT/HCPCS: 81500; 84443 ==

== ENCOUNTER → 2023-12-22 15:26 | Outpatient (BNVA) | payer MEDICARE, MEDICAID, SELFPAY | PROVIDERS: PCP Nurse Practitioner Family; Visit Provider Obstetrics & Gynecology | DX: N83.8 Other noninflammatory disorders of ovary, fallopian tube and broad ligament (principal) | CPT/HCPCS: 83001 ==

== ENCOUNTER → 2024-01-26 11:18 | Outpatient (BNVA) | payer MEDICARE, MEDICAID, SELFPAY | PROVIDERS: PCP Nurse Practitioner Family; Visit Provider Obstetrics & Gynecology | DX: N83.202 Unspecified ovarian cyst, left side (principal) | CPT/HCPCS: 76830 ==

== ENCOUNTER 2024-01-30 11:13 | Outpatient (CLI) | payer MEDICARE, MEDICAID, SELFPAY ==
--- NOTE | 2024-01-30 11:00 | US_ITS ---
WS: [id number] US transvaginal [id number] HISTORY: R10.2 - Pelvic and perineal pain, this is a repeat ultrasound with no additional charge. Clark dy is being performed to confirm location of the cystic mass. Patient is status post RIGHT oophorecto my. COMPARISON: Prior transvaginal ultrasound 01/26/2024, 04/23/2023, pelvic CT 11/12/2023 Uterus: Midline and normal size. Right ovary: RIGHT oophorectomy. A normal ovary is not identified. There is a complex cystic mass in the RIGHT adnexa which has been previously described. This mass abhay sures 4.5 x 3.3 x 4.8 cm. There are septations through the cystic mass with no increased vascularity. This cystic mass has been previously described on prior studies extending back to 09/25/2022 without change in size. This was thought to be associated with the RIGHT ovary. The RIGHT ovary has since bee n removed and the mass is still present. On a prior CT of the pelvis from 11/12/2023 this mass was pre sent also and is partially encased by small bowel. Left ovary: 3.1 cm x 2.9 cm x 2.3 cm. Normal size and vascularity, no cystic or solid masses. Small f ollicles within the LEFT ovary. No free fluid in the cul-de-sac. US/US transvaginal [id number] IMPRESSION: 1. Repeat limited transvaginal pelvic ultrasound to confirm location of the co mplex cyst which has been previously described and to reevaluate the LEFT ovary . 2. LEFT ovary is normal size. The previously described complex cystic mass on 11/12/2023 has resolved. This was likely a hemorrhagic cyst which has involuted. 3. Status post RIGHT oophorectomy. The RIGHT ovary is not identified. 4. There is a complex cystic mass reidentified within the RIGHT adnexa. This m ass has been previously described on prior imaging studies including CT and ult rasound. This mass was superior to the RIGHT ovary and inseparable. Mass is sti ll identified after the oophorectomy. This is a complex cystic mass with septat ions measuring 4.5 x 3.3 x 4.8 cm. By ultrasound imaging this is a concerning m ass. After reviewing the prior CT this mass is partially encased by small bowel . 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 Additional etiology would be mesenteric cyst or lymphangioma. Masses may cause low grade chronic discomfort and cramping. I f big enough these masses may cause an intussusception or may bleed. Mass does not appear to have increased significantly in size since 09/25/2022. If this is thought to be the source of pain surgical excision is a treatment option.
== END 2024-01-30 11:14 | disposition home or self-care (01) ==
LOC: RAD 11:14
PROVIDERS: PCP Nurse Practitioner Family; Visit Provider Obstetrics & Gynecology
DX: R19.00 Intra-abdominal and pelvic swelling, mass and lump, unspecified site (principal); R10.2 Pelvic and perineal pain; Z90.721 Acquired absence of ovaries, unilateral
CPT/HCPCS: 76830

== ENCOUNTER 2024-04-12 19:23 | Emergency (ER) | payer MEDICARE, MEDICAID, SELFPAY ==
[2024-04-12 19:29] VITALS: BP 138/110; PULSE 98; RESP 20; TEMP 36.3; O2SAT 100; BMI 33.9
[2024-04-12 21:05] VITALS: BP 144/108; PULSE 94; RESP 16; O2SAT 99
--- NOTE | 2024-04-12 21:10 | W.ED.HA ---
HPI - Headache General: Chief Complaint: Headache Stated Complaint: Vomiting\Headache Time Seen by Provider: 04/12/24 19:58 Source: patient Mode of arrival: ambulatory Limitations: no limitations History of Present Illness: Patient is a 38-year-old female with past medical history of migraines who presents emergency department complaining of migraine headache onset around 1800 tonight. Patient states that the pain is severe, 10/10 worsened with light and sound. She compares it the pain from prior migraines, but states this is much more severe. States that it has been intermittent since , but hit like a train tonight. Pain primarily to the left side, reporting associated nausea. She is not reporting any neurological deficits or other concerning symptoms. She sees neurology and has for many years, and is on multiple prophylactic and abortive migraine medications. States that nothing has helped. MD elicited complaint: migraine Pertinent past history: migraines Onset (ago): hour(s) Time: 18:00 Onset description: gradually Location: left and parietal Severity: severe Quality & Timing: throbbing and sharp Exacerbating factors: light and noise Context: occurred at rest Associated symptoms: Reports nausea; Deny chest pain, fever(s), lightheadedness, rash or vomiting Treatments prior to arrival: migraine medication Related Data Home Medications Medication Instructions Recorded Confirmed linaclotide 145 mcg capsule 145 mcg PO DAILY 12/14/21 01/29/24 (Linzess) pregabalin 300 mg capsule 300 mg PO BID 12/14/21 01/29/24 famotidine 20 mg tablet (Pepcid) 40 mg PO BEDTIME 08/06/22 01/29/24 prenat.vits,patricia,hga-vgly-olgho 1 tab PO DAILY 08/06/22 01/29/24 L.acidoph, paracasei,B. lactis 10 1 cell PO BEDTIME 05/07/23 01/29/24 billion cell capsule (Digestive Advantage Advanced Probiotic) azelastine 137 mcg (0.1 %) nasal 1 spray intranasal BID 05/07/23 01/29/24 spray diphenhydramine HCl 50 mg tablet 100 mg PO .nightly 05/07/23 01/29/24 (Benadryl Allergy) epinephrine 0.3 mg/0.3 mL 0.3 mg IM Q4H PRN allergies 05/07/23 01/29/24 injection, auto-injector ferrous sulfate 325 mg (65 mg 325 mg PO DAILY 05/07/23 01/29/24 iron) tablet fluticasone propionate 50 2 spray intranasal DAILY 05/07/23 01/29/24 mcg/actuation nasal spray,suspension (Flonase Allergy Relief) ropinirole 2 mg tablet 2 mg PO DAILY 05/07/23 01/29/24 amitriptyline 25 mg tablet 25 mg PO BEDTIME 07/04/23 01/29/24 cyanocobalamin (vitamin B-12) 50 50 mcg PO DAILY 07/04/23 01/29/24 mcg tablet (Vitamin B-12) tizanidine 4 mg capsule 4 mg PO Q6H PRN muscle spasms 07/04/23 01/29/24 topiramate 100 mg tablet 100 mg PO DAILY 07/04/23 01/29/24 vitamin B complex 1 cap PO DAILY 07/04/23 01/29/24 duloxetine 60 mg capsule,delayed 60 mg PO DAILY 08/18/23 01/29/24 release (Cymbalta) milnacipran 50 mg tablet (Savella) 50 mg PO BID 12/05/23 01/29/24 rivaroxaban 20 mg tablet (Xarelto) 20 mg PO DAILY 12/05/23 01/29/24 Previous Rx's Medication Instructions Recorded acetaminophen 325 mg capsule 325 mg PO Q4H PRN fever or 07/08/23 Postoperative pain #60 caps ibuprofen 800 mg tablet 800 mg PO TID PRN pain #60 tabs 07/08/23 amitriptyline 25 mg tablet 25 mg PO DAILY #30 tabs 09/23/23 sumatriptan succinate 100 mg tablet 100 mg PO BID #8 tabs 09/23/23 sumatriptan succinate 100 mg 100 mg PO BID PRN Migraine 09/23/23 tablet (Imitrex) Headache #8 tabs Allergies Allergy/AdvReac Type Severity Reaction Status Date / Time codeine Allergy Unknown Verified 01/29/24 08:24 hornet venom Allergy welps Verified 02/10/24 15:42 hydrocodone Allergy Unknown Verified 01/29/24 08:24 Sulfa (Sulfonamide Allergy Unknown Verified 01/29/24 08:24 Antibiotics) Review of Systems General: Reports: 10 or more systems reviewed and unremarkable except in HPI and below Const: Denies: fever(s), chills or fatigue Eyes: Denies: change in vision ENMT: Denies: throat pain, ear or mastoid pain or nasal discharge Card: Denies: chest pain, palpitations, swelling of feet/ankles or lightheadedness Resp: Denies: dyspnea, productive cough or wheezing GI: Reports: nausea; Denies: abdominal pain, vomiting, diarrhea or constipation : Denies: flank pain, difficulty voiding, dysuria or urinary frequency Musc: Denies: neck pain, back pain or joint pain Skin/Breast: Denies: rash Neuro: Reports: headache(s); Denies: numbness in extremities, weakness in extremities, sensory changes, frequent falls, Slurred speech present, seizure-like activity or involuntary movements PFSH ED PFSH: Medical History Migraine without aura Fibromyalgia syndrome Irritable bowel syndrome (IBS) CONSTIPATION Heartburn Bipolar 1 disorder No pertinent past medical history neghx: htn,dm,thyroid,pe PCP: Cintia Doshi [place] DVT (deep venous thrombosis) (~2001) L leg-- OCP related Genital herpes Depression Surgical History History of laparoscopy (~07/08/23) Diagnostic laparoscopy, [facility], Right oophorectomy performed by Brian at [facility]; omental adhesions to abd wall and right ovary enlarged and adhered to pelvic wall. Benign. History of back surgery (~05/22/22) Procedure: 1. T10 to L4 posterior spine fusion 2. T10 to L4 instrumentation 3. L1/2 laminectomy with partial facetectomy 4. L2/3 Laminectomy with partial facetectomy 5. use of computer navigation/stereotactic for spine 6. bone marrow aspirate right iliac crest 7. use of autograft from same incision 8. use of allograft H/O LEEP (~2019) Hx of appendectomy (~1989) History of back surgery (~2017) S/P fusion of sacroiliac joint (~2018) Bilateral History of hip surgery (~2019) Right-- femur head repair Hx of cholecystectomy (~2019) Hx of shoulder surgery (~2020) Right shoulder Family History Mother No problems noted. Other Adopted Social History Smoking and tobacco/nicotine status: former use of tobacco/nicotine Physical Exam Const: COMMON NORMALS: patient oriented x3 and no limitations GENERAL APPEARANCE: cooperative and well developed ORIENTATION/CONSCIOUSNESS: Yes awake, Yes oriented to person, Yes oriented to place and Yes oriented to time OTHER: Patient examined in a dark room, appearing uncomfortable secondary to migraine HENMT: COMMON NORMALS: normocephalic, atraumatic and hearing grossly normal bilaterally HEAD & SCALP: normocephalic and atraumatic Eye: COMMON NORMALS: Equal, round and reactive pupils present, EOMs intact bilaterally and conjunctivae normal CONJUNCTIVA: Yes conjunctivae normal PUPIL: Yes Equal, round and reactive pupils present OTHER: Eyes track midline Neck/C-Spine: COMMON NORMALS: full ROM, supple and no JVD Resp: COMMON NORMALS: normal respiratory effort, No retractions, No use of accessory muscles and clear to auscultation bilaterally AUSCULTATION: clear to auscultation bilaterally Cardio: COMMON NORMALS: no JVD, regular rate, regular rhythm, No clicks present (Cardio), No murmurs present (Cardio) and No rub (Cardio) RATE: regular rate RHYTHM: regular rhythm Extremity: COMMON NORMALS: normal to inspection, full ROM and capillary refill normal Neuro: COMMON NORMALS: patient oriented x3, CN's II-XII intact bilaterally, moves all extremities, no focal motor deficits and no sensory deficits noted SENSORIUM/ORIENTATION: Yes oriented to person, Yes oriented to place and Yes oriented to time COORDINATION/BALANCE: [id number] test normal and [id number] test normal MOTOR EXAM: 5/5 motor strength present throughout, Pronator motor function not present, no tremor noted, no asterixis, Motor fasciculations not present and Normal motor muscle tone present throughout COORDINATION: [id number] test normal and [id number] test normal Psych: COMMON NORMALS: mental status grossly normal and Normal thought process present THOUGHT PROCESS: Normal thought process present Skin: COMMON NORMALS: no rashes or lesions noted GENERAL SKIN EXAM: no rashes or lesions noted Course Vital Signs: Vital signs: Vital Signs Temperature 97.3 F L 04/12/24 19:29 Pulse Rate 83 04/12/24 21:59 Respiratory Rate 18 04/12/24 21:59 Blood Pressure 145/97 04/12/24 21:59 Pulse Oximetry 99 04/12/24 21:59 Oxygen Delivery Me thod Room Air 04/12/24 21:59 MDM - Headache Medical Decision Making Patient has extensive history of migraines, stating this feels similar just worse. Neurologically was intact on physical exam. She notes improvement after receiving migraine cocktail here, she is currently trying to establish with a new neurologist. Discussed importance of this and reasons to return were discussed. She is comfortable with discharge home at this time. No radiology studies performed this visit Discharge Plan Discharge Patient Disposition: Home Clinical Impression: Migraine Qualifiers: Migraine type: unspecified Status migrainosus presence: with status migrainosus Intractability: intractable Qualified Code(s): G43.911 - Migraine, unspecified, intractable, with status migrainosus Condition: Stable Prescriptions: No Action Benadryl Allergy 50 mg tablet 100 mg PO .nightly ropinirole 2 mg tablet 2 mg PO DAILY ferrous sulfate 325 mg (65 mg iron) tablet 325 mg PO DAILY azelastine 137 mcg (0.1 %) aerosol,spray 1 spray intranasal BID Rx Instructions: administer into each nostril epinephrine 0.3 mg/0.3 mL auto-injector 0.3 mg IM Q4H PRN (Reason: allergies) fluticasone propionate [Flonase Allergy Relief] 50 mcg/actuation spray,suspension 2 spray intranasal DAILY Rx Instructions: administer into each nostril Digestive Advantage Advanced 10 billion cell capsule 1 cell PO BEDTIME duloxetine [Cymbalta] 60 mg capsule,delayed release(DR/EC) 60 mg PO DAILY prenat.vits,patricia,[id number] Tablet 1 tab PO DAILY Savella 50 mg tablet 50 mg PO BID Xarelto 20 mg tablet 20 mg PO DAILY Rx Instructions: must administer with evening meal Imitrex 100 mg tablet 100 mg PO BID PRN (Reason: Migraine Headache) Qty: 8 0RF Rx Instructions: Take one tablet at onset of headache. May take a second tablet 2 hours after if no relief MUST HAVE APPT FOR ANY FURTHER REFILLS sumatriptan succinate 100 mg tablet 100 mg PO BID Qty: 8 0RF Rx Instructions: take 1 tab at onset of headache; if no relief, may repeat 1 tab after at least 2 hrs; max = 2 tabs/24 hrs PO amitriptyline 25 mg tablet 25 mg PO DAILY Qty: 30 0RF Rx Instructions: Take at BED TIME amitriptyline 25 mg tablet 25 mg PO BEDTIME topiramate 100 mg tablet 100 mg PO DAILY tizanidine 4 mg capsule 4 mg PO Q6H PRN (Reason: muscle spasms) Vitamin B-12 50 mcg Tablet 50 mcg PO DAILY vitamin B complex Capsule 1 cap PO DAILY acetaminophen 325 mg capsule 325 mg PO Q4H PRN (Reason: fever or Postoperative pain) Qty: 60 0RF ibuprofen 800 mg tablet 800 mg PO TID PRN (Reason: pain) Qty: 60 0RF pregabalin 300 mg capsule 300 mg PO BID Linzess 145 mcg capsule 145 mcg PO DAILY famotidine [Pepcid] 20 mg tablet 40 mg PO BEDTIME Patient Comments: 1 IN THE MORNING AND 1 AT NIGHT Discharge Orders: Discharge ED (Routine); Ordered 04/12/24 Ordered By: Imtiaz Mccabe Referrals: Keo Villalba FNP [Primary Care Provider] - Patient Instructions: Migraine Headache (ED) Activity Restrictions/Additional Instructions: Continue taking your medications at home. Allow yourself to rest in a dark environment and recover, drink plenty of fluids. Follow-up with primary care, specifically with request for referral to neurologist as we discussed. Please return with any new or worsening. Coding Level of Care Code ED [employer] Specialist for Jorge Loja
[2024-04-12] MEDS: ondansetron 2 mg/ML SDV 2 mL 8 MG IVP (21:17)
[2024-04-12] MEDS: diphenhydrAMINE 50 mg/mL SDV 1mL IVP (21:20)
[2024-04-12] MEDS: ketorolac 60 mg/2 mL INJ 30 MG IVP (21:21)
[2024-04-12] MEDS: dexamethasone 10 mg/mL INJ IVP (21:22)
[2024-04-12] MEDS: sodium chloride 0.9% 1,000 ML 999 ML IV (21:24)
[2024-04-12 21:59] VITALS: BP 145/97; PULSE 83; RESP 18; O2SAT 99
[2024-04-12 22:57] VITALS: BP 130/89; PULSE 92; RESP 18; O2SAT 94
== END 2024-04-12 22:59 | disposition home or self-care (01) ==
PROVIDERS: Emergency Provider Physician Assistant; PCP Nurse Practitioner Family
DX: G43.911 Migraine, unspecified, intractable, with status migrainosus (principal); Z87.891 Personal history of nicotine dependence
CPT/HCPCS: 96374; 96375; 99284; J1100; J1200; J1885; J2405; J7030